=== PATIENT | female | born 1955 | race Caucasian/White ===

== ENCOUNTER 2018-05-25 00:48 | Outpatient (CLI) | payer BC, SELFPAY ==
--- NOTE | 2018-05-25 15:50 | DI.MAMMO_ITS ---
SYMPTOM/DIAGNOSIS: SCREENING, Z12.31 MAMMOGRAMS: Mammograms were interpreted according to the usual protocol including computer analysis with CAD system, tomosynthesis and C view imaging. Comparison is made with exams from [id number]. The breasts are composed of heterogeneously dense fibroglandular tissue, breast density, category C. No suspicious masses or suspicious microcalcifications are seen. There has been no significant change. IMPRESSION: Category 1C, negative mammogram. Yearly screening mammography is recommended. [facility] ASSESSMENT OF FINDINGS: Negative. Category 1. Patient will receive a letter notifying them of these results. Bi-RADS category C. The breasts are heterogeneously dense, which may obscure small masses.
== END 2018-05-25 01:08 ==
PROVIDERS: PCP Nurse Practitioner Family; Visit Provider Nurse Practitioner Family
DX: Z12.31 Encounter for screening mammogram for malignant neoplasm of breast (principal)
CPT/HCPCS: 77063; 77067

== ENCOUNTER 2018-12-12 20:01 | Emergency (ER) | payer BC, SELFPAY ==
[2018-12-12 20:09] VITALS: BP 149/90; PULSE 110; RESP 16; TEMP 36.7; O2SAT 100
--- NOTE | 2018-12-12 20:26 | W.ED.GENAD ---
Discharge Plan Disposition Patient Disposition: [facility] Condition: Serious Discharge Details Chief Complaint: GenMedical Clinical Impression: SDH (subdural hematoma) Primary Care Provider: Sommer Mack ED Provider: Jaime Cameron Home Meds and New Rx's Prescriptions: No Action fenofibric acid (choline) 45 mg capsule,delayed release(DR/EC) 45 mg PO DAILY RF: 0 multivitamin 1 EACH tablet 1 tab PO DAILY RF: 0 sodium chloride [Sven 128] 3.5 GM ointment 1 applic OU HS RF: 0 cholecalciferol (vitamin D3) 1,000 UNIT capsule 1,000 unit PO DAILY RF: 0 omega-3 fatty acids 1,000 MG capsule 1,000 mg PO DAILY Qty: 1 RF: 0 estradiol [Vagifem] 10 MCG tablet 10 mcg VG 2 x a week Qty: 30 RF: 3 amitriptyline 25 MG tablet 25 mg PO HS Qty: 90 RF: 4 metoprolol succinate [Toprol XL] 25 MG tablet extended release 24 hr 1 tab PO HS Qty: 90 RF: 4 Discharge Data Discharge Date/Time-TO BE ENTERED AT DEPARTURE: 12/13/18 01:01 Medical Decision Making 62-year-old female presents from home complaining of intermittent episodes over 5 days time of left-sided weakness. Initially felt with her left thigh, then her left axilla, and tonight over her left face. There is been no other associated focal neurologic deficits. She has a blood pressure 149/90, her neurologic exam is unremarkable. Differential diagnosis would include subdural hematoma given recent fall, demyelinating disease such as MS, electrolyte abnormality or dehydration. Referred for screening laboratory EKG, CT scan of the head. CBC, comprehensive, troponin, magnesium unremarkable. Please see additional Downtime Note for final impression and disposition. Addendum: During downtime procedures, the patient was accepted in transfer to [facility] for subdural hematoma Lab Data Lab results reviewed: Yes I reviewed the patient's lab results. Laboratory Results - last 24 hr 12/12/18 12/12/18 20:38 20:38 WBC 6.24 RBC 4.06 Hgb 12.4 Hct 38.7 MCV 95.3 H MCH 30.5 MCHC 32.0 RDW 13.3 Plt Count 266 MPV 9.0 Immature Gran % 0.2 Neutrophils % 64.8 Lymphocytes % 24.4 Monocytes % 9.3 Eosinophils % 0.8 Basophils % 0.5 Absolute Neutrophils 4.05 Absolute Lymphocytes 1.52 Absolute Monocytes 0.58 Absolute Eosinophils 0.05 Absolute Basophils 0.03 Sodium 140 Potassium 3.6 Chloride 101 Carbon Dioxide 29.7 Anion Gap 9.3 BUN 17 Creatinine 0.89 Estimated GFR/1.73 m2 >= 60.00 Glucose 151 H Calcium 9.2 Magnesium 2.0 Total Bilirubin 0.3 AST 23 ALT 39 Alkaline Phosphatase 117 H Troponin I < 0.02 Total Protein 7.9 Albumin 3.7 ECG Data Attestation: I personally reviewed and interpreted this ECG (s) as follows: Interpretation: Normal sinus rhythm with a rate of 95. The QRS is narrow, there is no ST segment elevation HPI General Mode of arrival: ambulatory. Date/Time Provider Initiated Documentation: 12/12/18 20:04. Limitations to Documentation: no limitations. Information obtained by: patient and family. History of Present Illness 62 year old F presents to the emergency department with the chief complaint of Intermittent left-sided numbness over 5 days, described as mild, Quality is described as dull, and is localized to the head, chest and left. Patient started experiencing this day(s) and it has been intermittent. No relieving factors improve symptom(s), No exacerbating factors reported . Patient notes no other symptoms.; denies confusion, chest pain, headaches, syncope and weakness. Patient did receive the following treatments prior to arrival, none Related Data Home Medications Medication Instructions Recorded Confirmed multivitamin 1 tab PO DAILY 01/05/13 12/12/18 sodium chloride [Sven-128] 1 applic OU HS 03/07/13 12/12/18 cholecalciferol (vitamin D3) 1,000 unit PO DAILY 10/24/13 12/12/18 omega-3 fatty acids 1,000 mg PO DAILY #1 02/22/18 12/12/18 estradiol [Vagifem] 10 mcg VG 2 x a week #30 tab 04/20/18 12/12/18 amitriptyline 25 mg PO HS #90 tab-cap 04/26/18 12/12/18 metoprolol succinate [Toprol Xl] 1 tab PO HS #90 tab-cap 05/09/18 12/12/18 fenofibric acid (choline) 45 mg 45 mg PO DAILY 11/06/18 12/12/18 capsule,delayed release Previous Rx's Medication Instructions Recorded estradiol [Vagifem] 10 mcg VG 2 x a week #30 tab 04/20/18 amitriptyline 25 mg PO HS #90 tab-cap 04/26/18 metoprolol succinate [Toprol Xl] 1 tab PO HS #90 tab-cap 05/09/18 Allergies Allergy/AdvReac Type Severity Reaction Status Date / Time doxycycline Allergy Unknown RASH Unverified 12/12/18 20:09 General Stated Complaint: GenMedical ESTELA: 4 Review of Systems Review of Systems No chest pain. Patient notes of fall 1 month ago without loss of consciousness. She denies headaches. No facial droop, no difficulty with speech, no change to vision. 8 systems reviewed and otherwise [facility] Medical History Essential hypertension (Chronic 10/23/13) Depressive disorder (Chronic) Fuchs' corneal dystrophy (Chronic) Tubular adenoma of colon (Resolved ~2009) Surgical History Cervical Procedure (Inactive ~05/2010) Colonoscopy - IV Sedation (Inactive 06/28/16) Oral fibroma removal (Inactive 12/20/16) Family History Mother Essential hypertension Heart disease Hepatitis C Father Colon cancer Sister No problems noted. Brother Heart disease COPD (chronic obstructive pulmonary disease) Brother Essential hypertension Heart disease Myocardial infarction Brother Heart disease Grandfather Lung cancer Grandfather Skin cancer Grandmother Asthma Grandmother Asthma Other Diabetes Fuchs' corneal dystrophy Social History Smoking/Tobacco Use Status: Never Alcohol Intake: current Alcohol Intake frequency: a few times a month Drug use: Never Household members: other Details: 2 Duration: 15-30 minutes/day Frequency: daily Chana/Yazidism: Jainism Special chana needs: No Additional Social history: unable to assess. Exam Narrative Exam Narrative: GEN: awake, alert, oriented 3. Pleasant, well groomed, interactive. HEAD: Normocephalic, atraumatic ENT: Mucous membranes moist, oropharynx unremarkable, External ear exam unremarkable EYES: PERRL, EOMI NECK: Full ROM, no DAVINA, no menigismus CHEST/RESP: Nontender, clear to auscultation bilateral, no wheeze/rhonchi/rales CARDIOVASCULAR: RRR, no murmur, rub shonda. 2+ Rad pulse bilateral ABDOMEN: Soft, nontender, no mass. +Bowel sounds EXT: Full ROM, no edema, no rash Neuro: Grossly normal neurologic exam, conversant, interactive. Gait narrow based with good heel strike. Finger to nose intact. Visual rob intact to confrontation. Finger to nose intact. Negative Romberg.. Psych: Speech fluent, thoughts congruent, affect normal Course Vital Signs Temperature 36.7 C 12/12/18 20:09 Pulse 110 H 12/12/18 20:09 Respiratory Rate 16 12/12/18 20:09 Blood Pressure 149/90 H 12/12/18 20:09 Pulse Oximetry 100 12/12/18 20:09 Temperature 36.7 C 12/12/18 20:09 Temperature Source Temporal Artery Scan 12/12/18 20:09 Pulse 110 H 12/12/18 20:09 Respiratory Rate 16 12/12/18 20:09 Respiratory Effort 12/12/18 20:13 Blood Pressure 149/90 H 12/12/18 20:09 Blood Pressure Position Sitting 12/12/18 20:09 Pulse Oximetry 100 12/12/18 20:09 Oxygen Delivery Method Room Air 12/12/18 20:09 Oxygen Flow Rate 0 12/12/18 20:09
--- NOTE | 2018-12-12 20:29 | ED.GENADUL_ITS ---
Discharge Plan Disposition Patient Disposition: [facility] Condition: Serious Discharge Details Chief Complaint: GenMedical Clinical Impression: SDH (subdural hematoma) Primary Care Provider: Sommer Mack ED Provider: Jaime Cameron Home Meds and New Rx's Prescriptions: No Action fenofibric acid (choline) 45 mg capsule,delayed release(DR/EC) 45 mg PO DAILY RF: 0 multivitamin 1 EACH tablet 1 tab PO DAILY RF: 0 sodium chloride [Sven 128] 3.5 GM ointment 1 applic OU HS RF: 0 cholecalciferol (vitamin D3) 1,000 UNIT capsule 1,000 unit PO DAILY RF: 0 omega-3 fatty acids 1,000 MG capsule 1,000 mg PO DAILY Qty: 1 RF: 0 estradiol [Vagifem] 10 MCG tablet 10 mcg VG 2 x a week Qty: 30 RF: 3 amitriptyline 25 MG tablet 25 mg PO HS Qty: 90 RF: 4 metoprolol succinate [Toprol XL] 25 MG tablet extended release 24 hr 1 tab PO HS Qty: 90 RF: 4 Discharge Data Discharge Date/Time-TO BE ENTERED AT DEPARTURE: 12/13/18 01:01 Medical Decision Making 62-year-old female presents from home complaining of intermittent episodes over 5 days time of left-sided weakness. Initially felt with her left thigh, then her left axilla, and tonight over her left face. There is been no other associated focal neurologic deficits. She has a blood pressure 149/90, her neurologic exam is unremarkable. Differential diagnosis would include subdural hematoma given recent fall, demyelinating disease such as MS, electrolyte abnormality or dehydration. Referred for screening laboratory EKG, CT scan of the head. CBC, comprehensive, troponin, magnesium unremarkable. Please see additional Downtime Note for final impression and disposition. Addendum: During downtime procedures, the patient was accepted in transfer to [facility] for subdural hematoma Lab Data Lab results reviewed: Yes I reviewed the patient's lab results. Laboratory Results - last 24 hr 12/12/18 12/12/18 20:38 20:38 WBC 6.24 RBC 4.06 Hgb 12.4 Hct 38.7 MCV 95.3 H MCH 30.5 MCHC 32.0 RDW 13.3 Plt Count 266 MPV 9.0 Immature Gran % 0.2 Neutrophils % 64.8 Lymphocytes % 24.4 Monocytes % 9.3 Eosinophils % 0.8 Basophils % 0.5 Absolute Neutrophils 4.05 Absolute Lymphocytes 1.52 Absolute Monocytes 0.58 Absolute Eosinophils 0.05 Absolute Basophils 0.03 Sodium 140 Potassium 3.6 Chloride 101 Carbon Dioxide 29.7 Anion Gap 9.3 BUN 17 Creatinine 0.89 Estimated GFR/1.73 m2 >= 60.00 Glucose 151 H Calcium 9.2 Magnesium 2.0 Total Bilirubin 0.3 AST 23 ALT 39 Alkaline Phosphatase 117 H Troponin I < 0.02 Total Protein 7.9 Albumin 3.7 ECG Data Attestation: I personally reviewed and interpreted this ECG (s) as follows: Interpretation: Normal sinus rhythm with a rate of 95. The QRS is narrow, there is no ST segment elevation HPI General Mode of arrival: ambulatory . Date/Time Provider Initiated Documentation: 12/12/18 20:04 . Limitations to Documentation: no limitations . Information obtained by: patient and family . History of Present Illness 62 year old F presents to the emergency department with the chief complaint of Intermittent left-sided numbness over 5 days, described as mild, Quality is described as dull, and is localized to the head, chest and left. Patient started experiencing this day(s) and it has been intermittent. No relieving factors improve symptom(s), No exacerbating factors reported . Patient notes no other symptoms.; denies confusion, chest pain, headaches, syncope and weakness. Patient did receive the following treatments prior to arrival, none Related Data Home Medications Medication Instructions Recorded Confirmed multivitamin 1 tab PO DAILY 01/05/13 12/12/18 sodium chloride [Sven-128] 1 applic OU HS 03/07/13 12/12/18 cholecalciferol (vitamin D3) 1,000 unit PO DAILY 10/24/13 12/12/18 omega-3 fatty acids 1,000 mg PO DAILY #1 02/22/18 12/12/18 estradiol [Vagifem] 10 mcg VG 2 x a week #30 tab 04/20/18 12/12/18 amitriptyline 25 mg PO HS #90 tab-cap 04/26/18 12/12/18 metoprolol succinate [Toprol Xl] 1 tab PO HS #90 tab-cap 05/09/18 12/12/18 fenofibric acid (choline) 45 mg 45 mg PO DAILY 11/06/18 12/12/18 capsule,delayed release Previous Rx's Medication Instructions Recorded estradiol [Vagifem] 10 mcg VG 2 x a week #30 tab 04/20/18 amitriptyline 25 mg PO HS #90 tab-cap 04/26/18 metoprolol succinate [Toprol Xl] 1 tab PO HS #90 tab-cap 05/09/18 Allergies Allergy/AdvReac Type Severity Reaction Status Date / Time doxycycline Allergy Unknown RASH Unverified 12/12/18 20:09 General Stated Complaint: GenMedical ESTELA: 4 Review of Systems Review of Systems No chest pain. Patient notes of fall 1 month ago without loss of consciousness. She denies headaches. No facial droop, no difficulty with speech, no change to vision. 8 systems reviewed and otherwise in [facility] Medical History Essential hypertension (Chronic 10/23/13) Depressive disorder (Chronic) Fuchs' corneal dystrophy (Chronic) Tubular adenoma of colon (Resolved ~2009) Surgical History Cervical Procedure (Inactive ~05/2010) Colonoscopy - IV Sedation (Inactive 06/28/16) Oral fibroma removal (Inactive 12/20/16) Family History Mother Essential hypertension Heart disease Hepatitis C Father Colon cancer Sister No problems noted. Brother Heart disease COPD (chronic obstructive pulmonary disease) Brother Essential hypertension Heart disease Myocardial infarction Brother Heart disease Grandfather Lung cancer Grandfather Skin cancer Grandmother Asthma Grandmother Asthma Other Diabetes Fuchs' corneal dystrophy Social History Smoking/Tobacco Use Status: Never Alcohol Intake: current Alcohol Intake frequency: a few times a month Drug use: Never Household members: other Details: 2 Duration: 15-30 minutes/day Frequency: daily Chana/Anglican: Confucianism Special chana needs: No Additional Social history: unable to assess. Exam Narrative Exam Narrative: GEN: awake, alert, oriented 3. Pleasant, well groomed, interactive. HEAD: Normocephalic, atraumatic ENT: Mucous membranes moist, oropharynx unremarkable, External ear exam unremarkable EYES: PERRL, EOMI NECK: Full ROM, no DAVINA, no menigismus CHEST/RESP: Nontender, clear to auscultation bilateral, no wheeze/rhonchi/rales CARDIOVASCULAR: RRR, no murmur, rub shonda. 2+ Rad pulse bilateral ABDOMEN: Soft, nontender, no mass. +Bowel sounds EXT: Full ROM, no edema, no rash Neuro: Grossly normal neurologic exam, conversant, interactive. Gait narrow based with good heel strike. Finger to nose intact. Visual rob intact to confrontation. Finger to nose intact. Negative Romberg.. Psych: Speech fluent, thoughts congruent, affect normal Course Vital Signs Temperature 36.7 C 12/12/18 20:09 Pulse 110 H 12/12/18 20:09 Respiratory Rate 16 12/12/18 20:09 Blood Pressure 149/90 H 12/12/18 20:09 Pulse Oximetry 100 12/12/18 20:09 Temperature 36.7 C 12/12/18 20:09 Temperature Source Temporal Artery Scan 12/12/18 20:09 Pulse 110 H 12/12/18 20:09 Respiratory Rate 16 12/12/18 20:09 Respiratory Effort 12/12/18 20:13 Blood Pressure 149/90 H 12/12/18 20:09 Blood Pressure Position Sitting 12/12/18 20:09 Pulse Oximetry 100 12/12/18 20:09 Oxygen Delivery Method Room Air 12/12/18 20:09 Oxygen Flow Rate 0 12/12/18 20:09
[2018-12-12 20:46] LABS: Abs Immature Grans 0.01 k/cumm (0.0-0.09); Absolute Basophil Count 0.03 k/cumm (0.0-0.2); Absolute Eosinophil Count 0.05 k/cumm (0.0-0.7); Absolute Lymphocyte Count 1.52 k/cumm (1.2-3.4); Absolute Monocyte Count 0.58 k/cumm (0.11-0.7); Absolute Neutrophil Count 4.05 k/cumm (1.2-6.7); Basophils % 0.5; Eosinophils % 0.8; HCT 38.7 % (36.0-46.0); HGB 12.4 g/dL (12.0-15.5); Immature Grans % 0.2; Lymphocytes % 24.4; Mean Corpuscular Hemoglobin 30.5 pg (27.0-33.0); Mean Corpuscular Volume 95.3 fL (80-95); Monocytes % 9.3; Neutrophils % 64.8; Platelet Count 266 x1000/uL (130-400); RBC 4.06 m/cumm (4.00-5.20); RBC Distribution Width 13.3 % (11.7-14.6); White Blood Cell Count 6.24 k/cumm (4.4-10.8)
[2018-12-12 21:02] LABS: ALT 39 U/L (12-78); AST 23 U/L (15-37); Albumin 3.7 g/dL (3.4-5.0); Alkaline Phosphatase 117 U/L (46-116); Anion Gap 9.3 mmol/L (3-11); BUN 17 mg/dL (7-18); Bilirubin, Total 0.3 mg/dL (0.2-1.0); CO2 29.7 mmol/L (21.0-32.0); CREATININE 0.89 mg/dL (0.55-1.02); Calcium 9.2 mg/dL (8.5-10.1); Chloride 101 mmol/L (98-107); Glucose 151 mg/dL (70-100); Potassium 3.6 mmol/L (3.5-5.1); Sodium 140 mmol/L (136-145); Total Protein 7.9 g/dL (6.4-8.2); Troponin I < 0.02 ng/mL (0.00-0.06)
--- NOTE | 2018-12-12 21:20 | DI.CT_ITS ---
SYMPTOM/DIAGNOSIS: INTERMITTENT LT SIDED NUMBNESS, FALL 1 [address] A[address] HEAD [address]: A noncontrast exam was performed. 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 in thickness on the right side and 7 mm. in thickness on the left side. Note is however made of an acute subdural hematoma measuring 8 mm. in thickness in the left parietal region. There is a mild mass effect on the bilateral cerebral hemispheres with no midline shift or downward herniation. Atrophic changes involving the brain are demonstrated with evidence of small vessel disease. There is no evidence of an acute territorial infarct. The basil cisterns are visualized. The ventricles are unremarkable. There is no evidence of a skull fracture. The paranasal sinuses and mastoid air cells appear unremarkable. The soft tissues are unremarkable. Note is made of an empty sella. 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 in thickness on the right side and 7 mm. in thickness on the left side is demonstrated. Note is however made of an acute subdural measuring 8 mm. in thickness in the left parietal region. There is a mild mass effect on the cerebral hemispheres. There is no evidence of a midline shift or downward herniation. There is nothing on this examination to suggest a territorial infarct.
--- NOTE | 2018-12-13 00:57 | DI.VRAD_ITS ---
EXAM: CT Head Without Contrast EXAM DATE/TIME: 12/12/2018 8:26 PM CLINICAL HISTORY: 62 years old, female; Signs and symptoms; Dizziness and numbness / parasthesia; Left; Patient HX: Fell a month ago and had a concussion. New onset of left sided numbness starting in leg and moving up into shoulder TECHNIQUE: Imaging protocol: Axial computed tomography images of the head/brain without contrast. Coronal and sagittal reformatted images were created and reviewed. Radiation optimization: All CT scans at this facility use at least one of these dose optimization techniques: automated exposure control; mA and/or kV adjustment per patient size (includes targeted exams where dose is matched to clinical indication); or iterative reconstruction. COMPARISON: No relevant prior studies available. 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 There is, however, an acute subdural hematoma measuring 8 mm in thickness in the left parietal region. There is mild mass effect on the bilateral cerebral hemispheres with no midline shift or downward herniation. Age-related involutional changes and chronic microvascular ischemic disease. No evidence for acute transcortical infarct. Basal cisterns are patent. Ventricles: Normal. No ventriculomegaly. Bones/joints: Unremarkable. No acute fracture. Sinuses: Visualized sinuses are unremarkable. No acute sinusitis. Mastoid air cells: Visualized mastoid air cells are unremarkable. No mastoid effusion. Soft tissues: Unremarkable. Other findings: Empty sella. IMPRESSION: 1. 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 There is, however, an acute subdural hematoma measuring 8 mm in thickness in the left parietal region. There is mild mass effect on the bilateral cerebral hemispheres with no midline shift or downward herniation. 2. No evidence for acute transcortical infarct. THIS REPORT CONTAINS FINDINGS THAT MAY BE CRITICAL TO PATIENT CARE. The findings were verbally communicated via telephone conference with BRADEN MCCRARY at 9:44 PM EDT on 12/12/2018. The findings were acknowledged and understood. Dictated and Authenticated by: Zane Ortega MD. Ordering:RC Sandoval MD
[2018-12-13 05:52] LABS: Prothrombin Time 9.9 sec (9.3-11.0)
== END 2018-12-13 01:01 | disposition short-term general hospital (02) ==
LOC: ER 20:42
PROVIDERS: Emergency Provider Emergency Medicine; PCP Nurse Practitioner Family
DX: I62.00 Nontraumatic subdural hemorrhage, unspecified (principal)
CPT/HCPCS: 36415; 80053; 93005; 99285; 70450; 83735; 84484; 85025; 85610; 85730; 93010

== ENCOUNTER 2019-06-12 00:42 | Outpatient (CLI) | payer BC, SELFPAY ==
--- NOTE | 2019-06-12 14:20 | DI.CT_ITS ---
EXAM: CT HEAD WO CLINICAL HISTORY: H/O SUBDURAL HEMATOMA 12/29,LAST SCAN 04/02 [facility] [place], [id number].XXXA FALL. TECHNIQUE: Imaging Protocol: Axial computed tomography images with coronal and sagittal reformatted images were created and reviewed COMPARISON: CT HEAD WO from 12/12/2018 FINDINGS: Ventricles and Extra axial spaces: Normal in size and morphology for the patient's age. No acute terr itorial infarct is identified. No intraparenchymal hemorrhage is present. The ventricles are intact . The basilar cisterns are patent. Hemorrhage: There are small bilateral subdural fluid collections. They are hypodense. These may rep resent old subdural hematomas or hygromas. No evidence of acute subdural hematoma. Cerebral parenchyma: Normal. Midline shift: None. Brainstem/Cerebellum: Normal. Calvarium: Normal. Visualized Paranasal sinuses/Mastoids: Clear. IMPRESSION: 1. No acute intracranial hemorrhage. 2. Bilateral small subdural hypodense fluid collections. These may represent old subdural hematomas or hygromas. DATA REPOSITORY: All CT scans at this facility are submitted to the National Radiology Data Registry (NRDR) Dose Index Registry (DIR) with the [employer] (ACR). RADIATION OPTIMIZATION: All CT scans at this facility use at least one of these dose optimization te chniques: automated exposure control; mA and/or kV adjustment per patient size (includes targeted exa ms where dose is matched to clinical indication); or iterative reconstruction.
== END 2019-06-12 01:02 ==
PROVIDERS: PCP Nurse Practitioner Family; Visit Provider Nurse Practitioner Family
DX: I62.03 Nontraumatic chronic subdural hemorrhage (principal); Z86.79 Personal history of other diseases of the circulatory system; Z91.81 History of falling
CPT/HCPCS: 70450

== ENCOUNTER 2019-08-07 00:52 | Outpatient (CLI) | payer BC, SELFPAY ==
--- NOTE | 2019-08-07 16:39 | DI.MAMMO_ITS ---
EXAM: MAMMO SCREENING CLINICAL HISTORY: screening Z12.39 TECHNIQUE: Mammograms were interpreted according to the usual protocol including computer analysis w [employer] CAD system, tomosynthesis and C-view imaging. COMPARISON: May 2018 FINDINGS: The breasts are heterogeneously dense. No dominant mass or clumped microcalcification is identified in either breast. The current examination is compared with previous examinations including May 2018 and there is question of interval increase in prominence of a focal area of asymmetric density/n odularity projected in the lateral retroareolar portion of the right breast on CC view only. Additio nal mammographic views of this area are requested to include CC spot compression view of the right b reast. No other significant change seen. IMPRESSION: Additional mammographic views of the right breast requested as described above. Breast ultrasound may be indicated as well depending on results additional mammographic views. Category 0, breast density Category C. BI-RADS Cat 0 - Assessment Incomplete: Need additional imaging evaluation Breast Density - Category C - Heterogeneously dense
== END 2019-08-07 01:12 ==
PROVIDERS: PCP Nurse Practitioner Family; Visit Provider Nurse Practitioner Family
DX: Z12.31 Encounter for screening mammogram for malignant neoplasm of breast (principal); R92.8 Other abnormal and inconclusive findings on diagnostic imaging of breast
CPT/HCPCS: 77063; 77067

== ENCOUNTER 2019-08-14 01:01 | Outpatient (CLI) | payer BC, SELFPAY ==
--- NOTE | 2019-08-14 10:34 | DI.US_ITS ---
EXAM: MG MAMMO SCREEN CALL BACK UNI and right breast ultrasound CLINICAL HISTORY: ? INTERVAL INCREASE PROMINENCE OF FOCAL AREA OF ASYMMETRIC DENSITY/NODULARI TECHNIQUE: Craniocaudal and mediolateral oblique Full Field Digital Mammography views with Computer Aided Diagnosis followed by Breast Tomosynthesis and bilateral breast ultrasound. COMPARISON: US BREAST RT LIMITED from 08/14/2019 FINDINGS: Mammography/Tomosynthesis: Breast Density: Breast Density - Category C - Heterogeneously dense Masses/Architectural Distortion: None seen. Microcalcifications: No suspicious pleomorphic-type are seen. Skin Thickening/Nipple Retraction: None. Breast Ultrasound: Right breast ultrasound Echotexture: Normal appearance of the glandular tissue. Shadowing: No suspicious foci. Cyst: None. Solid lesions: None seen. Ductal dilation: None. IMPRESSION: 1. No evidence for malignancy at this time 2. Unless there is more urgent need, follow-up screening mammography is recommended, as per [place] [employer] guidelines. ACR BI-RAD Category- 1 Negative Breast Density - Category C - Heterogeneously dense The findings were discussed with the patient on the date of the examination. The mammogram demonstrates the patient's breast tissue is dense. Dense breast tissue is very common a nd is not abnormal but dense breast tissue can make it harder to find cancer on a mammogram. Also, de nse breast tissue may increase their breast cancer risk. This information about the [facility] was provided to the patient to raise their awareness. Use this report when you speak wi th the patient about their risks for breast cancer, which includes their family history. At that time , you may recommend for more screening tests (Ultrasound or MRI) as they might be useful based on the ir risk. A negative radiographic report should not delay biopsy if a dominant or clinically suspicious mass is present. Up to ten percent of cancers are not identified on mammography. A negative report may reinforce clinical impression. Adenosis and dense breasts may obscure an underlying neoplasm. False positive reports average 6 to 10%. Patient will receive a letter notifying them of these results.
== END 2019-08-14 01:21 ==
PROVIDERS: PCP Nurse Practitioner Family; Visit Provider Nurse Practitioner Family
DX: Z12.31 Encounter for screening mammogram for malignant neoplasm of breast (principal); R92.8 Other abnormal and inconclusive findings on diagnostic imaging of breast; N64.59 Other signs and symptoms in breast
CPT/HCPCS: 76642; 77063; 77067

== ENCOUNTER 2020-02-21 01:27 | Outpatient (CLI) | payer BC, SELFPAY ==
--- NOTE | 2020-02-21 14:05 | DI.DEXA_ITS ---
EXAM: XR DEXA BONE DENSITY W/WO LINDSAY CLINICAL HISTORY: osteoporosis screening Z78.0 ASYMPTOMATIC MENOPAUSAL STATE TECHNIQUE: COMPARISON: No exams were available for comparison FINDINGS: Lateral Spine Image: Unremarkable. No compression deformities identified. Left hip: Total T-Score: 0.8 Total Z-Score: 2.0 T- and Z-scores: Within normal limits. Lumbar Spine: Total T-Score: 2.1 Total Z-Score: 3.8 T- and Z-scores: Within normal limits. IMPRESSION: No evidence of osteoporosis.
== END 2020-02-21 01:47 ==
PROVIDERS: PCP Nurse Practitioner Family; Visit Provider Nurse Practitioner Family
DX: Z13.820 Encounter for screening for osteoporosis (principal); Z78.0 Asymptomatic menopausal state
CPT/HCPCS: 77080

== ENCOUNTER 2020-04-21 01:54 | Outpatient (CLI) | payer BC, SELFPAY ==
--- NOTE | 2020-04-21 06:45 | DI.US_ITS ---
EXAM: US PELVIS TRANSVAGINAL CLINICAL HISTORY: FOCUS ON OVARY,RLQ PAIN,RT SIDED ABD PAIN. TECHNIQUE: Transabdominal and transvaginal pelvic ultrasound was performed using standard protocol. COMPARISON: US PELVIS TRANSVAG from 04/06/2010 FINDINGS: KIDNEYS: Kidneys are symmetric in size. No evidence of renal calculi. No evidence of hydronephrosis. No renal mass or cyst identified. UTERUS: Position: Anteverted. Size: 7.4 long by 4.0 AP by 4.9 transverse cm Endometrium: 0.7 cm. Mildly thickened in this postmenopausal patient. Please correlate with clinical history and for evidence of postmenopausal bleeding. Follow-up as clinically appropriate. Myometrium: 2 hypoechoic masses are seen within the myometrium. The larger measures 1.2 cm. The sma ller measures 1.1 cm. These likely reflect fibroids. Cervix: Unremarkable. OVARIES: Right: 1.9 x 0.7 x 0.8 cm Cyst or mass: None. Left: 2.2 x 0.8 x 0.9 cm Cyst or mass: None. DOPPLER: Color: Symmetric and uniform flow to both ovaries. No hyperemia. Duplex: Normal ovarian arterial waveforms visualized. CUL-DE-SAC: Free fluid: None. Other: None. IMPRESSION: 1. Normal sonographic appearance of the kidneys. 2. Two small uterine fibroids. 3. 7 mm endometrial stripe in this postmenopausal patient. Follow-up based on clinical history. 4. Unremarkable bilateral ovaries. DATA REPOSITORY:
== END 2020-04-21 02:14 ==
PROVIDERS: PCP Nurse Practitioner Family; Visit Provider Nurse Practitioner Family
DX: R10.31 Right lower quadrant pain (principal); D25.9 Leiomyoma of uterus, unspecified
CPT/HCPCS: 76830; 76856

== ENCOUNTER 2020-04-29 15:12 | Outpatient (REF) | payer BC, SELFPAY ==
--- NOTE | 2020-04-29 14:54 | ENDOMET_PTH ---
PATIENT: Iona Montez LOC: [facility] U#:[id number] AGE/SX: 64/F ROOM: RE04/29/[address]: Fatuma Anne DO : 1955 BED: DIS: 04/29/2020 SPEC #: [id number] RECD: 04/29/20 18:15 STATUS: SOUKrystle REQ #: [id number] PABLO: 04/29/20 14:[address]: Fatuma Anne DEPT: Surgical Specimen RECD BY: Mily Madden ENTERED: 04/29/20 18:16 SP TYPE: Endomet OTHR DR: RAE Cole Tissues: 1 - ENDOMETRIUM BX/HAILEE Procedures: GROSS AND MICRO LEVEL 4 Comments: [id number]
== END 2020-04-29 15:32 ==
LOC: LBN 15:12
PROVIDERS: PCP Nurse Practitioner Family; Visit Provider Obstetrics & Gynecology
DX: N84.0 Polyp of corpus uteri (principal); N85.8 Other specified noninflammatory disorders of uterus
CPT/HCPCS: 88305

== ENCOUNTER 2020-05-13 10:15 | Emergency (ER) | payer BC, SELFPAY ==
--- NOTE | 2020-05-13 10:15 | DI.CT_ITS ---
EXAM: CT ABDOMEN PELVIS W CLINICAL HISTORY: Abdominal pain TECHNIQUE: Imaging Protocol: Axial computed tomography images with coronal and sagittal reformatted images were created and reviewed CONTRAST MATERIAL: Intravenous: Omnipaque 350 Contrast volume:100 mL Oral: Yes COMPARISON: No exams were available for comparison FINDINGS: ABDOMEN: Lung Bases: Normal where visualized. Liver: Normal density. No measurable mass. Portal, Superior Mesenteric, and Splenic Veins: Unremarkable. Gallbladder and Biliary Tract: No radiodense calculus or dilation. Pancreas: Normal density, no abnormal calcifications or inflammatory process. Spleen: Normal. Adrenals: No masses seen. 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 No radiodense stones or obstructive uropathy. Tiny hypo densities are seen in the kidneys. They are too small for further characterization but likely reflec t small cysts. Abdominal Aorta: Abdominal portion non-dilated. Bowel: No obstruction or bowel wall thickening. No evidence of acute appendicitis. Peritoneal Cavity: No ascites, collection or mesenteric inflammatory response. Lymph Nodes: Within normal limits. Bones: Degenerative changes. Soft Tissues: Unremarkable. PELVIS: Bladder: Symmetric distention, no gross wall thickening. Reproductive Organs: Unremarkable as visualized. Lymph Nodes: Within normal limits. Bones: Degenerative changes. IMPRESSION: No acute abdominal or pelvic process. Findings were discussed with the emergency department on the date of the examination. RADIATION DOSE DELIVERED: 976.4mGy.cm Total DLP DATA REPOSITORY: All CT scans at this facility are submitted to the National Radiology Data Registry (NRDR) Dose Index Registry (DIR) with the [employer] (A[employer]). RADIATION OPTIMIZATION: All CT scans at this facility use at least one of these dose optimization te chniques: automated exposure control; mA and/or kV adjustment per patient size (includes targeted exa ms where dose is matched to clinical indication); or iterative reconstruction.
[2020-05-13 10:24] VITALS: BP 157/88; PULSE 117; RESP 17; TEMP 37.2; O2SAT 100
--- NOTE | 2020-05-13 10:31 | ED.GENADUL_ITS ---
Discharge Plan Disposition Patient Disposition: HOME Condition: Stable Discharge Details Chief Complaint: Abd Prob Clinical Impression: Abdominal pain Primary Care Provider: Sommer Mack ED Provider: Rachel Palomo Home Meds and New Rx's Prescriptions: Continued calcium carbonate [Calcium 500] 500 mg calcium (1,250 mg) tablet 1,500 mg PO DAILY RF: 0 multivitamin 1 EACH tablet 1 tab PO DAILY RF: 0 sodium chloride [Sven 128] 3.5 GM ointment 1 applic OU HS RF: 0 amitriptyline 25 mg tablet 25 mg PO HS Qty: 90 RF: 4 metoprolol succinate [Toprol XL] 25 mg tablet extended release 24 hr 25 mg PO HS Qty: 90 RF: 4 Discharge Instructions Instructions: Abdominal Pain (ED) Additional Instructions: Follow up with primary care provider in 3-5 days. Return to ED sooner if any worsening or concerns. Increase oral fluids. Please take Tylenol or Ibuprofen with food every 4-6 hours as needed for pain and swelling. Follow-up with Dr. Giles with general surgery as previously discussed for possible outpatient colonoscopy. Today your labs were within normal limits. Your stool was guaiac negative for blood. Your CT abdomen pelvis showed no evidence for appendicitis, no thickening of the bowel wall, or any acute abnormalities noted. Referrals: Sommer Mack NP [Primary Care Provider] - Yaquelin Santiago MD [ [facility] STAFF PHYSICIAN] - Discharge Data Discharge Date/Time-TO BE ENTERED AT DEPARTURE: 05/13/20 12:42 Medical Decision Making 64-year-old female presents to the ER with chief complaint of right lower quadr ant abdominal pain which is been ongoing for approximately 4 to 5 months. Patient states that she was seen by general surgery Dr. Santiago on Tuesday who ordered a CT abdomen pelvis with oral and IV contrast to be scheduled within the next 10 days. Patient states that her abdominal pain increased today so she decided to come into the ER. Associated symptoms include alternating diarrhea and constipation. Denies dysuria, vomiting fever chills. Does have a history of depression, Subdural hematoma, hypertension, hyperlipidemia. 1210: Spoke with Dr. Yaquelin Santiago regarding patient discussed negative guaiac stools and CT abdomen pelvis which is pending at this time, verbalized understanding. EXAM: CT ABDOMEN PELVIS W CLINICAL HISTORY: Abdominal pain TECHNIQUE: Imaging Protocol: Axial computed tomography images with coronal and sagittal reformatted images were created and reviewed CONTRAST MATERIAL: Intravenous: Omnipaque 350 Contrast volume:100 mL Oral: Yes COMPARISON: No exams were available for comparison FINDINGS: ABDOMEN: Lung Bases: Normal where visualized. Liver: Normal density. No measurable mass. Portal, Superior Mesenteric, and Splenic Veins: Unremarkable. Gallbladder and Biliary Tract: No radiodense calculus or dilation. Pancreas: Normal density, no abnormal calcifications or inflammatory process. Spleen: Normal. Adrenals: No masses seen. 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 No radiodense stones or obstructive uropathy. Tiny hypodensities are seen in the kidneys. They are too small for further characterization but likely reflect small cysts. Abdominal Aorta: Abdominal portion non-dilated. Bowel: No obstruction or bowel wall thickening. No evidence of acute appendicitis. Peritoneal Cavity: No ascites, collection or mesenteric inflammatory response. Lymph Nodes: Within normal limits. Bones: Degenerative changes. Soft Tissues: Unremarkable. PELVIS: Bladder: Symmetric distention, no gross wall thickening. Reproductive Organs: Unremarkable as visualized. Lymph Nodes: Within normal limits. Bones: Degenerative changes. IMPRESSION: No acute abdominal or pelvic process. Labs are largely within normal limits. CBC shows no leukocytosis, sodium is 136, potassium is 4.0 glucose is 121, urine shows 40 ketones trace blood 3-5 RBCs Plan is to discharge patient with follow-up with Dr. Santiago for possible outpatient colonoscopy. Discussed plan and CT results and lab results with patient, verbalized understanding. At this time patient is guaiac negative and stable and safe for discharge. Patient remained hemodynamically stable, this text was generated using Card Isleation system, please disregard any oddities of phrase or misspellings. Differential diagnosis includes but not limited to gastroenteritis, colitis, colon cancer, appendicitis, diverticulitis HPI General Mode of arrival: ambulatory . Date/Time Provider Initiated Documentation: 05/13/20 10:18 . Limitations to Documentation: no limitations . Information obtained by: patient . HPI Narrative: 64-year-old female presents to the ER with chief complaint of right lower quadrant abdominal pain which is been ongoing for approximately 4 to 5 months. Patient states that she was seen by general surgery Dr. Santiago on Tuesday who ordered a CT abdomen pelvis with oral and IV contrast to be scheduled within the next 10 days. Patient states that her abdominal pain increased today so she decided to come into the ER. Associated symptoms include alternating diarrhea and constipation. Denies dysuria, vomiting fever chills. Does have a history of depression, Subdural hematoma, hypertension, hyperlipidemia. Related Data Home Medications Medication Instructions Recorded Confirmed multivitamin 1 tab PO DAILY 01/05/13 05/13/20 sodium chloride [Sven 128] 1 applic OU HS 03/07/13 05/13/20 amitriptyline 25 mg tablet 25 mg PO HS #90 tab-cap 04/30/19 05/13/20 metoprolol succinate 25 mg 25 mg PO HS #90 tab-cap 08/24/19 05/13/20 tablet,extended release 24 hr calcium carbonate 500 mg calcium 1,500 mg PO DAILY tab 05/09/20 05/13/20 (1,250 mg) tablet Previous Rx's Medication Instructions Recorded amitriptyline 25 mg tablet 25 mg PO HS #90 tab-cap 04/30/19 metoprolol succinate 25 mg 25 mg PO HS #90 tab-cap 08/24/19 tablet,extended release 24 hr Allergies Allergy/AdvReac Type Severity Reaction Status Date / Time doxycycline Allergy Unknown RASH Unverified 05/13/20 10:28 General Stated Complaint: Abd Prob ESTELA: 3 Review of Systems Narrative: Constitutional: Negative for weight loss, alert and oriented, well groomed, normal body habitus, appears comfortable. HEENT: Denies trauma, headaches, blurry vision, nasal discharge, sore throat, trouble swallowing. Chest: Denies chest pain, palpitations, irregular rhythm, hypertension. Respiratory: Denies Shortness of breath, cough, hemoptysis. GI: Reports chronic right lower quadrant abdominal pain alternating constipation and diarrhea. : Denies dysuria, hematuria, flank pain, Neuro: Denies dizziness, blurry vision, weakness, syncope, headache or facial numbness. Hematologic: Denies easy bruising, intolerance to heat or cold, hair loss. [facility] Medical History Abdominal pain (Acute) Altered bowel habits (Acute) Depressive disorder (Chronic) Essential hypertension (Chronic) Fuchs' corneal dystrophy (Chronic) Hyperlipidemia (Chronic) Prediabetes (Chronic) Subdural hematoma (Resolved ~12/2018) Managed by [facility] [place] Neuro. Near resolution per head CT 06/12/19 Thickened endometrium (Acute) Tubular adenoma of colon (Resolved ~2009) Surgical History Hx of oral surgery (Acute 12/20/16) Oral fibroma removal S/P colonoscopy (Acute 06/28/16) Family History Mother , At 90 from liver failure Hypertension Liver disease Heart disease Father , At 80 from colon cancer Colon cancer Sister No problems noted. Brother COPD (chronic obstructive pulmonary disease) Heart disease Brother Heart disease Myocardial infarction Hypertension Type 2 diabetes mellitus Brother Heart disease Type 2 diabetes mellitus Maternal Grandfather Lung cancer Maternal Grandmother Asthma Paternal Grandfather , At 78 from suicide Skin cancer Asthma Paternal Grandmother Asthma Social History Smoking/Tobacco Use Status: Never Alcohol Intake: current Alcohol Intake frequency: a few times a month Drug use: Never Counseling provided: none Household members: other Details: 2 Duration: 15-30 minutes/day Frequency: daily Chana/Yazidism: Catholic Special chana needs: No Do you feel safe at home: Yes Do you feel safe in your relationship?: Yes Female Reproductive History Menstrual Menopause type: natural History History 0 Para Hx # Term Pregnancies Multiple births Hx # Pregnancies Ectopic pregnancies AB induced Hx Number of Living Children AB spontaneous Exam Narrative Exam Narrative: Constitutional: Alert and oriented x3. Appears stated age. Normal body habitus. Head: Normocephalic, no trauma. Eyes: Pupils PERRLA, Red reflex noted, EOM's intact. Eyelids symmetrical without lesions, discharge, or swelling. ENT: Bilateral TM's WNL, External ear normal to inspection, no mastoid TTP, swelling, or erythema, Nasal turbinates WNL, no nasal discharge. Normal dentition, Posterior pharynx WNL, no exudate. Chest: RRR, Normal S1, S2, distal pulses intact. Resp: Lungs clear to auscultation bilaterally, no wheezes, rales, or rhonchi. Abdominal: Abdomen soft, nondistended right lower quadrant tender to palpation. Negative iliopsoas sign, negative obturator sign. Normoactive bowel sounds all 4 quadrants. Musculoskeletal: Normal gait, 5/5 strength to all four extremities. Skin: No suspicious rashes or lesions. Capillary refill less than 2 sec. Neurologic: Cranial nerves II-XII intact. Alert and oriented x 3. DTR's intact. Hematologic/Lymphatic: No ecchymosis, no lymphadenopathy. Course Vital Signs Vital signs: Vital Signs Temperature 37.2 C 05/13/20 10:24 Pulse 117 H 05/13/20 10:24 Respiratory Rate 17 05/13/20 10:24 Blood Pressure 157/88 H 05/13/20 10:24 Pulse Oximetry 100 05/13/20 10:24 Temperature 37.2 C 05/13/20 10:24 Temperature Source Skin 05/13/20 10:24 Pulse 117 H 05/13/20 10:24 Respiratory Rate 17 05/13/20 10:24 Blood Pressure 157/88 H 05/13/20 10:24 Blood Pressure Position Sitting 05/13/20 10:24 Pulse Oximetry 100 05/13/20 10:24 Oxygen Delivery Method Room Air 05/13/20 10:24 Oxygen Flow Rate 0 05/13/20 10:24 Pain Level 2 05/13/20 10:24 Procedures Stool Hemoccult Procedural Steps Taken: stool placed in appropriate test area, developer placed on stool and control areas and controls appropriately positive and negative Hemoccult result: negative
[2020-05-13] MEDS: Omnipaque 350 MG/ML 50 ML BTL PO (10:35)
[2020-05-13] MEDS: Breeza Beverage 473 ML BTL PO ×2 (10:36→10:37)
[2020-05-13 10:56] LABS: Bilirubin Negative (Negative); Blood Trace-intact (Negative); Clarity Clear (Clear); Glucose Negative (Negative); Ketones 40 mg/dL (Negative); Leukocyte Esterase Negative (Negative); Nitrite Negative (Negative); Specific Gravity >= 1.030 (1.005-1.025); Urobilinogen 0.2 EU/dL (Up TO 0.2)
[2020-05-13] MEDS: Omnipaque 350 MG/ML 100 ML BTL IJ (11:06)
[2020-05-13] MEDS: Normal Saline - Diluent 50 ML VIAL IV (11:09)
[2020-05-13] MEDS: Normal Saline 1,000 ML 250 ML IV (11:09)
[2020-05-13 11:11] LABS: Epithelial Cells Moderate HPF (Negative)
[2020-05-13 11:12] LABS: Bacteria Few HPF (Negative); C & S Indicated? No/Sq. Contamination; Casts Negative LPF (Negative); Crystals Negative HPF (Negative); Mucus Negative (Negative)
[2020-05-13 11:15] LABS: Abs Immature Grans 0.01 10^3/uL (0.0-0.06); Absolute Basophil Count 0.02 10^3/uL (0.0-0.2); Absolute Eosinophil Count 0.01 10^3/uL (0.0-0.7); Absolute Monocyte Count 0.32 10^3/uL (0.1-0.8); Absolute Neutrophil Count 4.02 10^3/uL (1.2-6.7); Basophils % 0.4; Eosinophils % 0.2; HCT 42.3 % (36.0-46.0); HGB 13.7 g/dL (11.2-15.7); Immature Grans % 0.2; Lymphocytes % 13.8; MCH 30.3 pg (27.0-33.0); MCHC 32.4 % (32.0-36.0); MCV 93.6 fL (80-95); MPV 9.3 fL (8.0-11.0); Monocytes % 6.3; Neutrophils % 79.1; Nucleated RBC 0 %; Platelet Count 229 10^3/uL (130-400); RBC 4.52 10^6/uL (3.93-5.22); RDW 12.3 % (11.7-14.6); RDW-SD 42.5 fL; WBC 5.08 10^3/uL (4.4-10.8)
[2020-05-13 11:36] LABS: ALT 34 U/L (14-59); AST 19 U/L (15-37); Alkaline Phosphatase 101 U/L (46-116); Anion Gap 8.9 mmol/L (3-11); BUN 10 mg/dL (7-18); Bilirubin, Total 0.4 mg/dL (0.2-1.0); CO2 28.1 mmol/L (21.0-32.0); CREATININE 0.89 mg/dL (0.55-1.02); Calcium 9.5 mg/dL (8.5-10.1); Chloride 99 mmol/L (98-107); Glucose 121 mg/dL (74-106); Lipase 218 U/L (73-393); Magnesium 1.9 mg/dL (1.8-2.4); Sodium 136 mmol/L (136-145); Total Protein 8.1 g/dL (6.4-8.2)
[2020-05-13 12:44] VITALS: BP 157/88; PULSE 90; RESP 17; TEMP 37.2; O2SAT 100
== END 2020-05-13 12:42 | disposition home or self-care (01) ==
PROVIDERS: Emergency Provider Registered Nurse Emergency; PCP Nurse Practitioner Family
DX: R10.31 Right lower quadrant pain (principal); R19.7 Diarrhea, unspecified; K59.00 Constipation, unspecified; I10 Essential (primary) hypertension
CPT/HCPCS: 36415; 80053; 83690; 96360; 96361; 99285; 74177; 81003; 81015; 83735; 85025; 99284; J3490; Q9967

== ENCOUNTER 2020-06-04 07:18 | Day surgery (SDC) | payer BC, SELFPAY ==
--- NOTE | 2020-06-04 06:44 | COLE_ITS ---
Date of service: 06/04/20 Time of Service: 08: Colonoscopy Report Date of procedure: 06/04/20 Pre-op diagnosis general: Right lower quadrant pain Post-op diagnosis procedure note: other (Grade 1 internal hemorrhoid, otherwise normal) Procedure: Colonoscopy Surgeon: Yaquelin Santiago Anesthesia proc note operative: other (General/ ASA 2/Alie Edwards, YUNIER) Estimated blood loss (mL): 0 Pathology: none sent Complications: None Disposition: same day Indications: Mrs. Montez is a pleasant 64 year old female who tells me that around December of this year she started to experience some right lower quadrant abdominal pain mostly with movement. At that time she was doing a lot of sit ups and planks because she was trying to lose weight. She also started to experience some constipation at that time. In February or March the patient started to go between constipation and diarrhea. She started to develop right lower quadrant pain which preceded a bout of diarrhea. The pain then would resolve. She also had one episode of pencil thin stools but the patient tells me that she was straining at the time. She was started on Metamucil by her primary care physician and this has helped. She has more normal bowel movements at this time but still once in a while has some loose stools or diarrhea. No kiara blood. Had one bowel movement today where there was some red flecks in them. Patient thought there was a blood vessel within the stool. Patient is quite anxious about the possibility of having colon cancer. She had a colonoscopy in 2016 which was normal. Patients father had colon cancer in his 80's. Patient was also seen by Dr. Anne because an US showed her endometrial lining to be thicker then expected. Biopsies were negative. At the time that Dr. Anne saw her the patient was constipated. Dr. Anne noted a fullness on palpation in the RLQ. Patient hasn't had an abdominal US or CT scan. CT scan was negative. Colonoscopy was recommended as next step. Risks, benefits and complications have been reviewed. Complications include but are not limited to bleeding, pain, perforation, missed small lesion/polyp, sore throat, aspiration and adverse reaction to the medications. Questions were ente rtained and answered to their satisfaction and they wished to proceed. No guarantees were given or implied. Prep: Miralax/Dulcolax Procedure Start Time: :27 Procedure End Time: 08:48 Retraction Time: 13 minutes Findings: Grade 1 internal hemorrhoids Procedure Description: After informed consent was obtained the patient was taken to the procedure room and placed in a left decubitous position. Monitors were applied and a time out was done. The patients name, date of , procedure, allergies to medications and metal in their body was reviewed. The patient was then sedated. Once sedated and comfortable a rectal exam was done. External exam was normal. Internal exam revealed a normal sphincter tone and no palpable masses. The scope was then introduced and retro-flexed. Grade 1 internal hemorrhoids were identified. The scope was then advanced to the cecum without difficulty. The ileocecal valve and appendiceal orifice were identified. The prep was good. The scope was then slowly retracted over 13 minutes back into the rectum. There were no polyps or diverticula noted. The scope was removed and the patient was woken up and taken back to Same day surgery in stable condition. The patient tolerated the procedure well and there were no immediate complications. Follow up: The patient should follow up in 10 years unless they develop changes in bowel habits or other new gastrointestinal complaints.
--- NOTE | 2020-06-04 06:46 | W.PM.DSUDISC ---
Discharge Plan Disposition Patient Disposition: HOME Condition: Good Discharge Details Reason For Visit: RLQ pain Attending Provider: Yaquelin Santiago Primary Care Provider: Sommer Mack Home Meds and New Rx's Prescriptions: Continued calcium carbonate [Calcium 500] 500 mg calcium (1,250 mg) tablet 1,500 mg PO DAILY RF: 0 multivitamin 1 EACH tablet 1 tab PO DAILY RF: 0 sodium chloride [Sven 128] 3.5 GM ointment 1 applic OU HS RF: 0 amitriptyline 25 mg tablet 25 mg PO HS Qty: 90 RF: 4 metoprolol succinate [Toprol XL] 25 mg tablet extended release 24 hr 25 mg PO HS Qty: 90 RF: 4 ascorbic acid (vitamin C) 500 mg Tablet 1,000 mg PO DAILY RF: 0 estradiol [Vagifem] 10 mcg Tablet 10 mcg VAGINAL DAILY RF: 0 Discontinued bisacodyl [Dulcolax (bisacodyl)] 5 mg tablet,delayed release (DR/EC) 5 mg PO ONCE Qty: 4 RF: 0 polyethylene glycol 3350 17 gram/dose powder 17 g PO ONCE Qty: 238 RF: 0 Discharge Instructions Instructions: Hemorrhoids (DC) Additional Instructions: Findings: a couple of small internal hemorrhoids otherwise normal large bowel Follow up: in 10 years for the next colonoscopy Please call if you develop: fevers >101.5 Nausea or Vomiting Abdominal pain that is not transient DAY SURGERY UNIT POST ENDOSCOPY INSTRUCTIONS 1. Because there will be medication in your system for the next 24 hours, you may feel a little sleepy. Your coordination will be affected. Therefore: a. Do not drive or operate dangerous equipment for 24 hours. b. Do not drink alcohol beverages for 24 hours (not even beer). c. Plan to go home and rest for the day. 2. Generally there are no restrictions on your activity after a day or so has gone by, but you may feel a bit fatigued for a few days. 3 After you arrive home you may have a light meal and return to a normal diet as you can tolerate it without feeling sick to your stomach. 4. After surgery, you may feel pain or discomfort. This should be only transient, but if it persists please contact your doctor. 5. If there are any questions regarding the findings of your procedure, please feel free to contact your doctor. 6. If you are unable to contact your doctor with a problem, contact the hospital at [phone]. 6. Continue all your regular medications unless directed otherwise. I understand the above instructions and have no questions. Signature of Patient or Responsible Adult Escort Date/Time Name of Responsible Adult Escort Signature of Nurse Date/Time Activity:: Activity as Tolerated Diet:: high fiber diet Discharge Orders Discharge Orders: Discharge Order (Routine); Ordered 06/04/20 Ordered By: Yaquelin Santiago
[2020-06-04 07:39] VITALS: BP 124/78; PULSE 112; RESP 16; TEMP 36.6; O2SAT 97
[2020-06-04] MEDS: Lactated Ringers 1,000 ML 80 ML IV (08:06)
[2020-06-04 09:21] VITALS: BP 118/75; PULSE 91; RESP 16; TEMP 36.2; O2SAT 99
== END 2020-06-04 09:50 | disposition home or self-care (01) ==
LOC: SUR 07:19
PROVIDERS: PCP Nurse Practitioner Family; Visit Provider Surgery
PROC: 0DJD8ZZ Inspection of Lower Intestinal Tract, Via Natural or Artificial Opening Endoscopic (ICD-10-PCS; CPT 45378; principal; 2020-06-04 08:15)
DX: R10.31 Right lower quadrant pain (principal); K64.0 First degree hemorrhoids
CPT/HCPCS: 45378; J2001

== ENCOUNTER 2020-08-13 01:19 | Outpatient (CLI) | payer BC, SELFPAY ==
--- NOTE | 2020-08-13 16:11 | DI.MAMMO_ITS ---
EXAM: MG MAMMO SCREENING CLINICAL HISTORY: screening,Z12.39. TECHNIQUE: Bilateral full field digital CC and MLO mammographic images were obtained with 3D tomosyn thesis and utilizing computer aided detection (CAD). COMPARISON: Prior mammograms dating back to 2010, the most recent being July 2019. Prior breast ultrasound August 2019 was reviewed. FINDINGS: There are no new dominant masses nor malignant appearing microcalcification groups. There is no new architectural distortion nor skin thickening-retraction. IMPRESSION: No radiographic evidence of malignancy. BI-RADS Category 1 - Negative Breast Density - Category C - Heterogeneously dense Breast density Category C or D implies that the patient has dense breast tissue. Dense breast tissue can make it harder to find cancer on a mammogram. Dense breast tissue is also associated with an incr eased risk of breast cancer. This information about the result of the mammogram report was provided to the patient to raise their awareness. Use this report when you speak with the patient about their risks for breast cancer, which includes their family history. At that time, you may recommend additional screening tests (Ultrasoun d or MRI) as these tests may add significant information. A negative radiographic report should not delay biopsy if a dominant or clinically suspicious mass is present. Up to ten percent of cancers are not identified on mammography. A negative report may reinforce clinical impression. Adenosis and dense breasts may obscure an underlying neoplasm. False positive reports average 6 to 10%. Patient will receive a letter notifying them of these results.
== END 2020-08-13 01:39 ==
PROVIDERS: PCP Nurse Practitioner Family; Visit Provider Nurse Practitioner Family
DX: Z12.31 Encounter for screening mammogram for malignant neoplasm of breast (principal)
CPT/HCPCS: 77063; 77067

== ENCOUNTER 2021-08-17 00:46 | Outpatient (CLI) | payer BC, MEDICARE, SELFPAY ==
--- NOTE | 2021-08-17 07:15 | DI.MAMMO_ITS ---
Exam(s) MAMMO SCREENING EXAM: MAMMO SCREENING CLINICAL HISTORY: screening,z12.39. TECHNIQUE: Bilateral full field digital CC and MLO mammographic images were obtained with 3D tomosyn thesis and utilizing computer aided detection (CAD). COMPARISON: Prior mammograms dating back to 2011, the most recent being August 2020. FINDINGS: No new significant radiograph findings in the left breast. In the right breast on the 3D MLO imaging there is a suggestion of an asymmetric density-possible nod ule measuring 6 x 6 millimeters located approximately 4 cm in from the nipple. There are no malignan t-appearing microcalcification groups in this region or elsewhere in either breast. Small new benign -appearing microcalcification group is noted posteriorly in the left breast. There is no significant architectural distortion nor skin thickening-retraction. IMPRESSION: Asymmetric density-possible new nodule in the right breast. Spot compression right breast MLO view a nd ultrasound recommended. BI-RADS Category 0 - Assessment Incomplete: Need additional imaging evaluation Breast Density - Category C - Heterogeneously dense Breast density Category C or D implies that the patient has dense breast tissue. Dense breast tissue can make it harder to find cancer on a mammogram. Dense breast tissue is also associated with an incr eased risk of breast cancer. This information about the result of the mammogram report was provided to the patient to raise their awareness. Use this report when you speak with the patient about their risks for breast cancer, which includes their family history. At that time, you may recommend additional screening tests (Ultrasoun d or MRI) as these tests may add significant information. A negative radiographic report should not delay biopsy if a dominant or clinically suspicious mass is present. Up to ten percent of cancers are not identified on mammography. A negative report may reinforce clinical impression. Adenosis and dense breasts may obscure an underlying neoplasm. False positive reports average 6 to 10%. Patient will receive a letter notifying them of these results.
== END 2021-08-17 01:06 ==
PROVIDERS: PCP Nurse Practitioner Family; Visit Provider Nurse Practitioner Family
DX: Z12.31 Encounter for screening mammogram for malignant neoplasm of breast (principal); R92.8 Other abnormal and inconclusive findings on diagnostic imaging of breast
CPT/HCPCS: 77063; 77067

== ENCOUNTER 2021-08-26 00:14 | Outpatient (CLI) | payer BC, MEDICARE, SELFPAY ==
--- NOTE | 2021-08-26 10:53 | DI.MAMMO_ITS ---
Exam(s) MG MAMMO SCREEN CALL BACK UNI US BREAST RT COMPLETE EXAM: MG MAMMO SCREEN CALL BACK UNI- RIGHT AND Complete RIGHT BREAST ULTRASOUND CLINICAL HISTORY: ASYMMETRIC DENSITY POSSIBLE NODULE RT BREAST. TECHNIQUE: Unilateral spot mammographic images obtained with 3D tomosynthesisand utilizing computer aided detection (CAD). . Complete RIGHT breast Ultrasound was also performed, including all 4 quadrants, the retroareolar you on, and the ipsilateral axilla. COMPARISON: Prior mammograms were reviewed. This additional imaging was performed due to findings described on the recent screening mammogram of 08/17/2021. FINDINGS: Additional mammographic views performed todayrender this area less concerning. COMPLETE RIGHT BREAST ULTRASOUND: All 4 quadrants were scanned as well as the retroareolar region an d right axilla. Ultrasound performed today reveals no evidence of solid or significant cystic lesions in all 4 quadra nts. No axillary adenopathy. IMPRESSION: No radiographic evidence of malignancy. Also negative complete right breast ultrasound Appropriate follow-up is keep this patient yearly mammogram schedule, with earlier imaging if a self detected breast change is noted.. The patient was informed of these findings and recommendations prior to leaving the department today. BI-RADS Category 2 - Benign Findings Breast Density - Category B - Scattered areas of fibroglandular density Breast density Category C or D implies that the patient has dense breast tissue. Dense breast tissue can make it harder to find cancer on a mammogram. Dense breast tissue is also associated with an incr eased risk of breast cancer. This information about the result of the mammogram report was provided to the patient to raise their awareness. Use this report when you speak with the patient about their risks for breast cancer, which includes their family history. At that time, you may recommend additional screening tests (Ultrasoun d or MRI) as these tests may add significant information. A negative radiographic report should not delay biopsy if a dominant or clinically suspicious mass is present. Up to ten percent of cancers are not identified on mammography. A negative report may reinforce clinical impression. Adenosis and dense breasts may obscure an underlying neoplasm. False positive reports average 6 to 10%. Patient will receive a letter notifying them of these results.
== END 2021-08-26 00:34 ==
PROVIDERS: PCP Nurse Practitioner Family; Visit Provider Nurse Practitioner Family
DX: Z12.31 Encounter for screening mammogram for malignant neoplasm of breast (principal); R92.8 Other abnormal and inconclusive findings on diagnostic imaging of breast
CPT/HCPCS: 76642; 77063; 77067

== ENCOUNTER → 2022-08-18 02:53 | Outpatient (CLI) | payer OTHER, MEDICARE, SELFPAY ==
--- NOTE | 2022-08-18 14:45 | DI.MAMMO_ITS ---
Exam(s) MAMMO SCREENING EXAM: MAMMO SCREENING CLINICAL HISTORY: screening,z12.39 TECHNIQUE: Mammograms were interpreted according to the usual protocol including computer analysis w [employer] CAD system, tomosynthesis and C-view imaging. COMPARISON: FINDINGS: The breasts are heterogeneously dense. No dominant mass or clumped microcalcification is identified in either breast. The current examination is compared with previous examinations including August 2021 and there has been no gross interval change in appearance in comparison with the prior studies. IMPRESSION: No specific evidence of malignancy at this time. Routine screening examinations are suggested at yea rly intervals due to the family history of breast carcinoma. BI-RADS Category 1 - Negative Breast Density - Category C - Heterogeneously dense
== END ==
PROVIDERS: PCP Nurse Practitioner Family; Visit Provider Nurse Practitioner Family
DX: Z12.31 Encounter for screening mammogram for malignant neoplasm of breast (principal); Z80.3 Family history of malignant neoplasm of breast
CPT/HCPCS: 77063; 77067

== ENCOUNTER 2022-11-17 21:25 | Outpatient (REF) | payer MEDICARE, SELFPAY | END 2022-11-17 21:26 | disposition home or self-care (01) | LOC: LBN 21:25 | PROVIDERS: PCP Nurse Practitioner Family; Visit Provider Nurse Practitioner Family | DX: L29.9 Pruritus, unspecified (principal); R30.0 Dysuria | CPT/HCPCS: 87491; 87591; 87086; 87480; 87510; 87660 ==

== ENCOUNTER 2022-12-01 12:23 | Outpatient (REF) | payer MEDICARE, SELFPAY | END 2022-12-01 12:24 | disposition home or self-care (01) | LOC: LBN 12:23 | PROVIDERS: PCP Nurse Practitioner Family; Visit Provider Nurse Practitioner Family | DX: N76.0 Acute vaginitis (principal) | CPT/HCPCS: 87480; 87510; 87660 ==

== ENCOUNTER 2023-04-04 08:21 | Outpatient (CLI) | payer MEDICARE, SELFPAY ==
[2023-04-04 08:34] LABS: Abs Immature Grans 0.01 10^3/uL (0.0-0.06); Absolute Basophil Count 0.04 10^3/uL (0.0-0.2); Absolute Eosinophil Count 0.07 10^3/uL (0.0-0.7); Absolute Lymphocyte Count 1.11 10^3/uL (1.2-3.4); Absolute Monocyte Count 0.46 10^3/uL (0.1-0.8); Absolute Neutrophil Count 3.11 10^3/uL (1.2-6.7); Basophils % 0.8; Eosinophils % 1.5; HCT 40.6 % (36.0-46.0); HGB 13.5 g/dL (11.2-15.7); Immature Grans % 0.2; Lymphocytes % 23.1; MCHC 33.3 % (32.0-36.0); MCV 93 fL (80-95); MPV 9.4 fL (8.0-11.0); Monocytes % 9.6; Neutrophils % 64.8; Platelet Count 237 10^3/uL (130-400); RBC 4.35 10^6/uL (3.93-5.22); RDW-SD 44.3 fL
[2023-04-04 09:04] LABS: ALT 75 U/L (14-59); AST 28 U/L (15-37); Albumin 3.7 g/dL (3.4-5.0); Alkaline Phosphatase 112 U/L (46-116); Anion Gap 6.6 mmol/L (3-11); BUN 14 mg/dL (7-18); Bilirubin, Total 0.4 mg/dL (0.2-1.0); CO2 30.4 mmol/L (21.0-32.0); Calcium 9.1 mg/dL (8.5-10.1); Chloride 103 mmol/L (98-107); Estimated GFR 61.36 (mL/min/1.73m2); Glucose 99 mg/dL (74-106); Lipase 86 U/L (16-77); Potassium 4.3 mmol/L (3.5-5.1); Sodium 140 mmol/L (136-145); Total Protein 7.7 g/dL (6.4-8.2)
[2023-04-04 16:50] LABS: Bilirubin Negative (Negative); Blood Trace-intact (Negative); Clarity Clear (Clear); Glucose Negative (Negative); Ketones 15 mg/dL (Negative); Leukocyte Esterase Moderate (Negative); Nitrite Negative (Negative); Specific Gravity 1.015 (1.005-1.025); Urobilinogen 0.2 mg/dL (Up to 0.2)
[2023-04-04 17:07] LABS: Bacteria Rare HPF (Negative); Crystals Negative HPF (Negative); Epithelial Cells Many HPF (Negative); Mucus Negative (Negative); RBC 0-2 HPF (0-2)
[2023-04-04 17:08] LABS: C & S Indicated? C&S Done As Ordered; Casts Negative LPF (Negative)
== END 2023-04-04 08:22 | disposition home or self-care (01) ==
LOC: LBO 08:22
PROVIDERS: Family Medicine; PCP Nurse Practitioner Family; Visit Provider Nurse Practitioner Family
DX: R10.10 Upper abdominal pain, unspecified (principal); R35.0 Frequency of micturition
CPT/HCPCS: 36415; 80053; 83690; 81003; 81015; 85025; 87086

== ENCOUNTER 2023-04-14 03:42 | Outpatient (CLI) | payer MEDICARE, SELFPAY ==
--- NOTE | 2023-04-14 07:00 | DI.US_ITS ---
Exam(s) US ABDOMEN EXAM: US ABDOMEN CLINICAL HISTORY: RUQ and epigastric pain, R10.10 TECHNIQUE: Ultrasound abdomen performed using standard protocol. COMPARISON: CT CT ABDOMEN PELVIS W from 05/13/2020 FINDINGS: LIVER: Normal size but mildly increased echogenicity consistent with mild hepatic steatosis.. No foc al liver lesions are seen.. GALLBLADDER: Sludge noted. No evidence of cholelithiasis. No evidence of wall thickening. No pericho lecystic fluid identified. BEST'S SIGN: Negative. BILIARY SYSTEM: No intrahepatic or extrahepatic biliary ductal dilation. KIDNEYS: Horseshoe kidney. No evidence of renal calculi. No evidence of hydronephrosis. No renal mas s or cyst identified. PANCREAS: Normal where visualized. SPLEEN: Not enlarged. ABDOMINAL AORTA AND IVC: Visualized portions normal caliber. ASCITES: None seen. IMPRESSION: Gallbladder sludge. No stones or wall thickening. Mild hepatic steatosis. DATA REPOSITORY:
== END 2023-04-14 04:02 ==
PROVIDERS: PCP Nurse Practitioner Family; Visit Provider Nurse Practitioner Family
DX: K82.8 Other specified diseases of gallbladder; K76.0 Fatty (change of) liver, not elsewhere classified
CPT/HCPCS: 76700

== ENCOUNTER → 2023-06-01 02:39 | Outpatient (CLI) | payer MEDICARE, SELFPAY ==
--- NOTE | 2023-06-01 07:30 | DI.NM_ITS ---
Exam(s) [place] HEPATOBILIARY CCK GRP EXAM: [facility] HEPATOBILIARY CCK GRP CLINICAL HISTORY: gallbladder sludge, check EF,k82.8. TECHNIQUE: Injected dose: 5 mCi Tc-99 mebrofenin Initial dynamic images: 60 minutes Post-Gallbladder fillin.02 mcg/kg CCK intravenously over a 30min infusion. Additional images: 30 minute dynamic during CCK administration. COMPARISON: US US ABDOMEN from 04/14/2023 FINDINGS: Normal hepatic transit time. Prompt excretion into the small bowel. Prompt excretion into the gallbladder. Gallbladder ejection fraction: Abnormally low at 3 percent IMPRESSION: 1. Low gallbladder ejection fraction of 3 percent. SNM guidelines: Gallbladder visualization should be present by 3 hours. Delayed apcyjry-yc-llwhq ko sit beyond 60 min raises the suspicion for partial common bile duct (CBD) obstruction. Gallbladder ejection fraction <35% has a good correlation with acalculous disease (i.e., chronic acal culous cholecystitis, cystic duct syndrome, sphincter of Oddi disease).
[2023-06-01] MEDS: Sincalide 5 MCG VIAL 1.4 MCG IJ (11:02)
== END ==
PROVIDERS: PCP Nurse Practitioner Family; Visit Provider Nurse Practitioner Family
DX: K82.8 Other specified diseases of gallbladder (principal)
CPT/HCPCS: 78227; J2805

== ENCOUNTER → 2023-07-06 07:30 | Outpatient (BNVA) | payer MEDICARE, SELFPAY | PROVIDERS: PCP Nurse Practitioner Family; Referring Provider Nurse Practitioner Family; Visit Provider Surgery | DX: K82.9 Disease of gallbladder, unspecified (principal) | CPT/HCPCS: 99203 ==

== ENCOUNTER 2023-07-22 06:15 | Day surgery (SDC) | payer MEDICARE, SELFPAY ==
--- NOTE | 2023-07-21 19:21 | W.PM.DSUDISC ---
Date of service: 07/22/23 Time of Service: 09:17 Discharge Plan Disposition Patient Disposition: Home Condition: Good Discharge Details Reason For Visit: Cholecystectomy Attending Provider: Juancho Holder Primary Care Provider: Sommer Mack Home Meds and New Rx's Prescriptions: New tramadol 50 mg tablet 50 mg PO Q8H PRNQty: 9 0RF Rx Instructions: 1 tablet by mouth up to every 8 hours if needed for severe pain. Continued calcium carbonate [Calcium 500] 500 mg calcium (1,250 mg) tablet 1,500 mg PO DAILY zinc acetate 50 mg (zinc) capsule 50 mg PO DAILY amitriptyline 25 mg tablet 25 mg PO HS Qty: 90 3RF metoprolol succinate [Toprol XL] 25 mg tablet extended release 24 hr 25 mg PO HS Qty: 90 3RF omeprazole 40 mg capsule,delayed release(DR/EC) 40 mg PO DAILY Qty: 90 3RF magnesium 250 mg tablet 250 mg PO DAILY multivitamin 1 EACH tablet 1 tab PO DAILY sodium chloride [Sven 128] 3.5 GM ointment 1 applic OU HS sucralfate [Carafate] 1 gram tablet 1 g PO BID Qty: 180 0RF ascorbic acid (vitamin C) 500 mg Tablet 1,000 mg PO DAILY Discharge Instructions Instructions: Laparoscopic Cholecystectomy (DC) Additional Instructions: Pat, we were able to take after gallbladder today just like we planned. It looks like it has been inflamed for quite some time. Hopefully, the removal of your gallbladder will help you feel much better. Expect to have a little bit of pain in the coming days as some of the anesthesia wears off. I have provided a prescription for a medication called tramadol to help in the case that Tylenol and ibuprofen are insufficient. I would continue to take your sucralfate and omeprazole for now, and we can see how you do in the coming weeks. I look forward to seeing you in the office in follow-up. If you have any questions in the meantime, please do not hesitate to call. 1. Resume all of your medications. 2. Heating pads and ice packs can be used on the incisions to help with discomfort. 3. Use ixwn-eoj-ueabfag tylenol and ibuprofen over the counter as needed. I recommend alternating them. I have also provided a prescription for tramadol if you need it. 4. Leave bandages in place for 24 hours, then remove. 5. Shower with warm soapy water. Pat dry. Use a bandaid if needed to protect your clothing. 6. No soaking or tub baths until I see you in the office. 7. No heavy lifting until I see you in the office. 8. Call the office (or go directly to the emergency room after hours) if you notice any of the following: Develop chills (warm to touch), or if you have a thermometer and your temperature is above 101 Difficulty breathing or difficultly swallowing Persistent vomiting Any bleeding ? exceeding one tablespoon 9. Call your physician if the site where your intravenous was started becomes red, swollen, painful, and warm to touch. Activity:: Activity as Tolerated Remove Dressings/Wound Care:: 24 hours Shower/Bathe:: 24 hours Diet:: As Tolerated Discharge Orders Discharge Orders: Discharge Order (Routine); Ordered 07/22/23 Ordered By: Juancho Holder DS: Diagnosis Discharge Diagnosis (1) Biliary dyskinesia: Status: Acute
[2023-07-22] VITALS (11 sets, daily range): BP systolic 105–135; BP diastolic 67–90; PULSE 51–80; RESP 11–23; TEMP 36.2–36.8; O2SAT 93–100; BMI 33.0
[2023-07-22] MEDS: Celecoxib 200 MG CAP PO (06:48)
[2023-07-22] MEDS: Gabapentin 300 MG CAP 600 MG PO (06:48)
[2023-07-22] MEDS: Acetaminophen 500 MG TAB 1000 MG PO (06:48)
[2023-07-22] MEDS: Normal Saline Flush 10 ML SYR IV (07:13)
[2023-07-22] MEDS: Indocyanine green 25 MG VIAL 5 MG IVP (07:13)
[2023-07-22] MEDS: Lactated Ringers 1,000 ML 80 ML IV (07:13)
--- NOTE | 2023-07-22 07:15 | W.ANESPRE ---
General Info Date of Service Date Performed: 07/22/23 Height: 5 ft 5 in Weight: 90 kg Body Mass Index (BMI): 33.0 Surgical Procedure: Operation Date: 07/22/23 07:40 Proposed Procedure Side Surgeon p Cholecystectomy Laparoscopic Juancho Holder MD Meds Allergies and Home Medications Allergies Allergy/AdvReac Type Severity Reaction Status Date / Time doxycycline Allergy Intermediate RASH Verified 07/22/23 07:21 Home Medication Medication Instructions Recorded multivitamin 1 tab PO DAILY 01/05/13 sodium chloride 5 % eye ointment 1 applic OU HS 03/07/13 (Sven 128) calcium carbonate 500 mg calcium 1,500 mg PO DAILY 05/09/20 (1,250 mg) tablet (Calcium 500) ascorbic acid (vitamin C) 500 mg 1,000 mg PO DAILY 06/04/20 tablet amitriptyline 25 mg tablet 25 mg PO HS #90 tab-caps 07/22/22 metoprolol succinate 25 mg 25 mg PO HS #90 tab-caps 07/22/22 tablet,extended release 24 hr (Toprol XL) zinc acetate 50 mg (zinc) capsule 50 mg PO DAILY 07/22/22 omeprazole 40 mg capsule,delayed 40 mg PO DAILY #90 caps 04/21/23 release sucralfate 1 gram tablet (Carafate) 1 g PO BID #180 tabs 05/19/23 magnesium 250 mg tablet 250 mg PO DAILY 07/06/23 Current Visit Medications: Current Medications Generic Name Dose Route Start Last Admin Trade Name Freq PRN Reason Stop Dose Admin Acetaminophen 1,000 mg 07/22/23 06:00 07/22/23 06:48 Acetaminophen 500 Mg Tab PO 08/20/23 23:59 1,000 mg PREOP JAEL Administration Celecoxib 200 mg 07/22/23 06:00 07/22/23 06:48 Celecoxib 200 Mg Cap PO 08/20/23 23:59 200 mg PREOP JAEL Administration Gabapentin 600 mg 07/22/23 06:00 07/22/23 06:48 Gabapentin 300 Mg Cap PO 08/20/23 23:59 600 mg PREOP JAEL Administration Ringer's Solution 1,000 mls @ 80 mls/hr 07/22/23 06:00 IV 08/20/23 23:59 INFUSION JAEL Cefazolin Sodium/Dextrose 2 gm in 50 mls @ 100 mls/hr 07/22/23 06:00 Ancef Duplex IVPB 12/09/23 23:59 PREOP JAEL IV Miscellaneous Supplies 1 each 07/22/23 06:00 Iv Access IV 08/20/23 23:59 DIRECTED JAEL Indocyanine Green 5 mg 07/22/23 06:00 Indocyanine Green 25 Mg Vial IVP 07/22/23 23:59 DIRECTED JAEL Sodium Chloride 0 ml 07/22/23 06:00 Normal Saline Flush 10 Ml Syr IV 08/20/23 23:59 PRN PRN Sodium Chloride 0 ml 07/22/23 06:00 Normal Saline 10 Ml Vial IJ 08/20/23 23:59 DIRECTED PRN Sterile Water 0 ml 07/22/23 06:00 Water,Injection,Sterile 10 Ml Vial IJ 08/20/23 23:59 DIRECTED PRN PFSH Active Problems Active Problems: Problem Status Onset Code Biliary dyskinesia K82.8 GERD (gastroesophageal reflux disease) K21.9 Gallbladder sludge K82.8 Fuchs' corneal dystrophy Essential hypertension I10 Hyperlipidemia E78.5 Major depressive disorder in full remission F32.5 Medical History Medical History Right upper quadrant abdominal pain [facility] 04/04/23. -hb COVID-19 virus infection (~05/2022) Thickened endometrium Negative endometrial biopsy 05/01 Prediabetes Subdural hematoma (~12/2018) Tubular adenoma of colon (~2009) Surgical History Surgical History S/P colonoscopy (06/04/20) Hx of oral surgery (12/20/16) Oral fibroma removal Tobacco Smoking/Tobacco Use Status: Never Passive smoking exposure: Yes Second hand exposure: Yes Alcohol Alcohol Intake: current Alcohol intake frequency: holidays/special occasions only Substance Use Substance use: Never Substance use type: does not use Counseling provided: none Prental History History 0 Para Hx # Term Pregnancies Multiple births Hx # Pregnancies Ectopic pregnancies AB induced Hx Number of Living Children AB spontaneous Vital Signs and Lab Results Vital Signs Most Recent Vital Signs in EMR: Most Recent Vital Signs Temp Pulse Resp BP Pulse Ox 36.8 C 80 18 116/79 97 07/22/23 06:16 07/22/23 06:16 07/22/23 06:16 07/22/23 06:16 07/22/23 06:16 Lab Results Blood Type / Crossmatch: No Data to Display Complete Blood Count: No Data to Display Complete Metabolic Panel: No Data to Display Liver Function Panel: No Data to Display Coagulation Panel: No Data to Display Cardiac Panel: No Data to Display Arterial Blood Gas: No Data to Display Venous Blood Gas: No Data to Display Pancreas Panel: No Data to Display Thyroid Panel: No Data to Display Infectious Disease: No Data to Display Blood Cultures: No Data to Display Toxicology Panel: No Data to Display Anesthesia Assessment and Plan Anesthesia History Personal History: No History of Anesthesia Complications Family History: No Family History of Anesthesia Complications Exercise Tolerance Exercise Tolerance: Metabolic Equivalents>4 Pertinent Negatives Pertinent Negatives: No Major Cardiovascular Symptoms or Complaints, No Major Pulmonary Symptoms or Complaints and No History of CVA/TIA Cardiac & Pulmonary Exam Cardiac Exam: Normal S1/S2 Heart Sounds Pulmonary Exam: Clear Bilateral Breath Sounds Implantable Cardiac Device Does patient have a Pacemaker or an ICD?: No Airway Exam Known Difficult Airway: No Mallampati Class: 3 Mouth Opening: Narrow (< 3cm) Thyromental Distance: Greater than 3 cm Neck Range of Motion: Full ROM Neck Circumference: Thick Teeth Condition: Normal Dentition ASA Classification ASA Score: ASA 2 Emergency Case?: No NPO Status NPO Status: NPO Clears >2 hours, Solids >8 hours Anesthesia Plan Resuscitation Status: Full Code Anesthesia Technique: General Anesthesia Airway Planned: Endotracheal Tube Monitors Used: Standard Monitors
[2023-07-22] MEDS: ceFAZolin 2 GM/50 ML BAG IVPB (07:44)
[2023-07-22] MEDS: Bupivacaine 0.25% Pres-Free 30 ML VIAL (08:41)
--- NOTE | 2023-07-22 08:57 | GB_PTH ---
PATIENT: Iona Montez LOC: [facility] U#:[id number] AGE/SX: 67/F ROOM: RE07/22/[address]: Juancho Holder MD : [id number] BED: DIS: 07/22/2023 SPEC #: [id number] RECD: 07/22/23 12:05 STATUS: AAKASH REQ #: [id number] PABLO: 07/22/23 08:[address]: Juancho Holder DEPT: Surgical Specimen RECD BY: Mily Madden ENTERED: 07/22/23 12:05 SP TYPE: GB OTHR DR: RAE Cole Tissues: 1 - GALLBLADDER Procedures: GROSS AND MICRO LEVEL 3 Comments: [id number]
[2023-07-22] MEDS: fentaNYL 100 MCG/2 ML VIAL IVP ×2 (09:35→10:13)
[2023-07-22] MEDS: Normal Saline 10 ML VIAL IJ (09:44)
[2023-07-22] MEDS: LORazepam 2 MG/ML VIAL 0.5 MG IVP (09:44)
[2023-07-22] MEDS: traMADol 50 MG TAB PO (11:29)
--- NOTE | 2023-07-22 11:56 | W.PM.OP ---
Date of service: 07/22/23 Time of Service: 11:56 Operative Note Operative Note DATE OF PROCEDURE: 07/22/23 PRE-OP DIAGNOSIS: Biliary dyskinesia POST-OP DIAGNOSIS: same PROCEDURE: Laparoscopic cholecystectomy SURGEON: Juancho Holder [employer] OPERATION: Gabriella Stone ANESTHESIA TYPE: General LMA/ETT Refer to Anesthesia Record ESTIMATED BLOOD LOSS: 20 PATHOLOGY: other (Gallbladder) COMPLICATIONS: None Patient was transported to: PACU Patient's condition: stable Indications: Ryann is a 67-year-old woman with chronic midepigastric discomfort. She underwent a HIDA scan that demonstrated biliary dyskinesia. Findings: Distended gallbladder Procedure Description: After satisfactory induction of general anesthesia, I prepped and draped the abdomen in usual fashion. Next, I began with a periumbilical incision. I dissected down to the fascia and elevated it with Matheus clamps. I incised it sharply. Next, I passed a 12 mm operating port in the umbilical site. I secured it to the fascia with 0 Vicryl stitches. I then insufflated the peritoneal cavity. Next I inserted a 10 mm 30 degree scope and examined the underlying viscera. There was no evidence of injury created upon entry. I then placed the patient in some reverse Trendelenburg and left side down positioning. Then, with the assistance of the laparoscope, I used local anesthetic to anesthetize the midepigastric and 2 right upper quadrant port sites. Under the vision of the laparoscope, I passed 2 more 5 mm ports. I put another 12 mm port in the mid epigastric position. I then grasped the gallbladder fundus and elevated cephalad. The gallbladder was quite distended, and a little bit difficult to grasp and maintain. Therefore, I decompressed it with a needle and syringe. Great care was taken to minimize spillage, and access site was used with the grasper as part of the retraction. I began by dissecting the gallbladder infundibulum. I worked in a lateral to medial fashion. Once I skeletonized the cystic duct and cystic artery, with a satisfactory critical view of safety, I doubly clipped and divided them. I then used electrocautery to dissect the gallbladder off the gallbladder fossa. I passed the gallbladder into an Endo Catch bag and removed it by way of the umbilical site. I examined the surgical field. It was hemostatic. I then removed the 5 mm ports under the vision of the laparoscope. Finally, I removed the umbilical port site and closed the fascia with Vicryl stitches. Sites were irrigated, and the skin was closed with subcuticular stitches. Bandages were applied, patient was awakened from anesthesia, and transferred to the recovery unit.
--- NOTE | 2023-07-22 12:22 | W.ANESPOSTOP ---
Postoperative Evaluation Date, Time and Location Date Performed: 07/22/23 Time Performed: 12:22 Patient Location: Day Surgery Unit Vital Signs Most Recent Imported Vital Signs: Most Recent Vital Signs Temp Pulse Resp BP Pulse Ox 36.3 C L 65 16 135/90 100 07/22/23 11:18 07/22/23 11:53 07/22/23 11:53 07/22/23 11:53 07/22/23 11:53 Pain Score Most Recent Pain Score: Most Recent Pain Score Pain Level 5 07/22/23 11:53 Assessment Mental Status: Awake (Alert & Oriented to Patient Baseline) Airway and Respiratory Function: Patent airway with normal (patient baseline) respiratory exam Cardiovascular Function: Hemodynamically Stable Hydration Status: Adequately Hydrated Nausea & Vomiting: No Nausea or Vomiting Pain: Pain is tolerable per patient Peripheral Nerve Block: Patient did not receive a nerve block
== END 2023-07-22 12:23 | disposition home or self-care (01) ==
PROVIDERS: PCP Nurse Practitioner Family; Visit Provider Surgery
PROC: 0FT44ZZ Resection of Gallbladder, Percutaneous Endoscopic Approach (ICD-10-PCS; CPT 47562; principal; 2023-07-22 07:30)
DX: K82.8 Other specified diseases of gallbladder (principal); I10 Essential (primary) hypertension
CPT/HCPCS: 47562; 88304; J0690; J1100; J2001; J2060; J2405; J2704; J3010

== ENCOUNTER → 2023-08-10 07:27 | Outpatient (BNVA) | payer MEDICARE, SELFPAY | PROVIDERS: PCP Nurse Practitioner Family; Referring Provider Nurse Practitioner Family; Visit Provider Surgery | DX: Z48.815 Encounter for surgical aftercare following surgery on the digestive system (principal) ==

== ENCOUNTER → 2023-08-19 00:47 | Outpatient (CLI) | payer MEDICARE, SELFPAY ==
--- NOTE | 2023-08-19 09:15 | DI.MAMMO_ITS ---
Exam(s) MAMMO SCREENING EXAM: MAMMO SCREENING CLINICAL HISTORY: screening, Z12.39. TECHNIQUE: Bilateral full field digital CC and MLO mammographic images were obtained with 3D tomosyn thesis and utilizing computer aided detection (CAD). COMPARISON: Prior mammograms were reviewed. FINDINGS: There has been no significant change in the appearance and distribution of the fibroglandular tissue. There are no new spiculated masses nor malignant appearing microcalcification groups. There is no significant architectural distortion nor skin thickening-retraction. IMPRESSION: No radiographic evidence of malignancy. BI-RADS Category 1 - Negative Breast Density - Category C - Heterogeneously dense Breast density Category C or D implies that the patient has dense breast tissue. Dense breast tissue can make it harder to find cancer on a mammogram. Dense breast tissue is also associated with an incr eased risk of breast cancer. This information about the result of the mammogram report was provided to the patient to raise their awareness. Use this report when you speak with the patient about their risks for breast cancer, which includes their family history. At that time, you may recommend additional screening tests (Ultrasoun d or MRI) as these tests may add significant information. A negative radiographic report should not delay biopsy if a dominant or clinically suspicious mass is present. Up to ten percent of cancers are not identified on mammography. A negative report may reinforce clinical impression. Adenosis and dense breasts may obscure an underlying neoplasm. False positive reports average 6 to 10%. Patient will receive a letter notifying them of these results.
== END ==
PROVIDERS: PCP Nurse Practitioner Family; Visit Provider Nurse Practitioner Family
DX: Z12.31 Encounter for screening mammogram for malignant neoplasm of breast (principal)
CPT/HCPCS: 77063; 77067

== ENCOUNTER 2023-09-26 05:22 | Outpatient (CLI) | payer MEDICARE, SELFPAY ==
[2023-09-26 12:45] LABS: ALT 32 U/L (14-59); AST 16 U/L (15-37); Albumin 3.5 g/dL (3.4-5.0); Alkaline Phosphatase 120 U/L (46-116); Anion Gap 5.8 mmol/L (3-11); BUN 19 mg/dL (7-18); Bilirubin, Total 0.3 mg/dL (0.2-1.0); CO2 31.2 mmol/L (21.0-32.0); Calcium 9.3 mg/dL (8.5-10.1); Calculated LDL 116 mg/dL (<100); Chloride 104 mmol/L (98-107); Cholesterol 178 mg/dL (<200); Estimated GFR 61.36 (mL/min/1.73m2); Glucose 93 mg/dL (74-106); HDL Cholesterol 37 mg/dL (40-60); Potassium 4.3 mmol/L (3.5-5.1); Sodium 141 mmol/L (136-145); Total Protein 7.4 g/dL (6.4-8.2); Triglyceride 125 mg/dL (<150)
[2023-09-26 12:53] LABS: Hemoglobin A1C 5.5 % (<5.7)
[2023-09-26 20:13] LABS: Hepatitis C Ab w Rflx HCV PCR Negative (Negative)
== END 2023-09-26 05:23 | disposition home or self-care (01) ==
LOC: LOS 05:22
PROVIDERS: PCP Nurse Practitioner Family; Visit Provider Nurse Practitioner Family
DX: E78.5 Hyperlipidemia, unspecified (principal); R73.03 Prediabetes; Z00.00 Encounter for general adult medical examination without abnormal findings
CPT/HCPCS: 36415; 80053; 80061; 86803; 83036

== ENCOUNTER 2024-05-03 08:11 | Outpatient (REF) | payer MEDICARE, SELFPAY ==
[2024-05-03 12:58] LABS: Bilirubin Negative (Negative); Blood Trace-intact (Negative); Clarity Sl Cloudy (Clear); Glucose Negative (Negative); Ketones Negative (Negative); Leukocyte Esterase Moderate (Negative); Nitrite Negative (Negative); Specific Gravity 1.015 (1.005-1.025); Urobilinogen 0.2 mg/dL (Up to 0.2)
[2024-05-03 13:03] LABS: Bacteria Few HPF (Negative); C & S Indicated? C&S Done As Ordered; Casts Negative LPF (Negative); Crystals Negative HPF (Negative); Epithelial Cells Many HPF (Negative); Mucus Negative (Negative)
== END 2024-05-03 08:12 | disposition home or self-care (01) ==
LOC: LBN 08:11
PROVIDERS: PCP Nurse Practitioner Family; Visit Provider Nurse Practitioner Family
DX: N30.90 Cystitis, unspecified without hematuria (principal); R30.0 Dysuria; N76.0 Acute vaginitis
CPT/HCPCS: 81003; 81015; 87086; 87480; 87510; 87660

== ENCOUNTER 2024-06-25 13:09 | Outpatient (REF) | payer MEDICARE, SELFPAY | END 2024-06-25 13:10 | disposition home or self-care (01) | LOC: LBN 13:09 | PROVIDERS: PCP Nurse Practitioner Family; Visit Provider Nurse Practitioner Family | DX: R30.0 Dysuria (principal) | CPT/HCPCS: 87480; 87510; 87660 ==

== ENCOUNTER 2024-07-10 10:01 | Outpatient (REF) | payer MEDICARE, SELFPAY | END 2024-07-10 10:02 | disposition home or self-care (01) | LOC: LBN 10:01 | PROVIDERS: PCP Nurse Practitioner Family; Visit Provider Physician Assistant | DX: R30.0 Dysuria (principal); R10.9 Unspecified abdominal pain | CPT/HCPCS: 87480; 87510; 87660 ==

== ENCOUNTER 2024-07-10 12:39 | Outpatient (CLI) | payer MEDICARE, SELFPAY ==
--- NOTE | 2024-07-10 10:00 | DI.RAD_ITS ---
Exam(s) XR ABDOMEN FLAT UPRIGHT EXAM: 2D digital imaging was performed. CLINICAL HISTORY: lower abdominal discomfort R10.9 ABD PAIN. COMPARISON: CT CT ABDOMEN PELVIS W from 05/13/2020 TECHNIQUE: Supine and uprightSupine and Lateral views of the abdomen were performed. FINDINGS: BOWEL GAS PATTERN: Nondistended.No free air. Stool seen in right side of colon. CALCIFICATIONS: No urinary tract calcifications. OSSEOUS STRUCTURES: Degenerative changes and mild scoliosis. Visualized portions of chest: Unremarkable. Soft tissues: Right upper quadrant surgical clips. IMPRESSION: 1. Nonobstructive bowel gas pattern. 2. No radiopaque calculi. 3. No free air. DATA REPOSITORY: RADIATION DOSE DELIVERED:
== END 2024-07-10 12:59 ==
PROVIDERS: PCP Nurse Practitioner Family; Visit Provider Physician Assistant
DX: R10.9 Unspecified abdominal pain (principal)
CPT/HCPCS: 74019

== ENCOUNTER 2024-07-11 00:56 | Outpatient (CLI) | payer MEDICARE, SELFPAY ==
--- NOTE | 2024-07-11 06:45 | DI.US_ITS ---
Exam(s) US PELVIS TRANSVAGINAL EXAM: US PELVIS TRANSVAGINAL CLINICAL HISTORY: evaluate pathology,hx of thickened endometrium,ABD PAIN,R10.9 TECHNIQUE: Transabdominal and transvaginal imaging was performed using standard protocol. COMPARISON: US US PELVIS TRANSVAGINAL from 04/21/2020 FINDINGS: The bladder is unremarkable. UTERUS: Anteverted. 8.8 x 4.1 x 5.6 cm Endometrium: 9 mm, Thickened for postmenopausal patient. heterogeneous but no visible focal mass. S imilar appearance to prior. No hypervascularity. Myometrium: Anterior fibroid measuring 1.8 cm. Cervix: Unremarkable. OVARIES: Right: Cyst or mass: None. Left: Cyst or mass: None. DOPPLER: Color: Symmetric and uniform flow to both ovaries. No hyperemia. CUL-DE-SAC: Free fluid: None. IMPRESSION: 1. Thickened and heterogeneous endometrial stripe measuring 9 millimeters . 2. Unremarkable bilateral ovaries. 3. Small anterior myometrial fibroid. DATA REPOSITORY:
== END 2024-07-11 01:16 ==
LOC: DI 00:56
PROVIDERS: PCP Nurse Practitioner Family; Visit Provider Nurse Practitioner Family
DX: R10.9 Unspecified abdominal pain (principal)
CPT/HCPCS: 76830; 76856

== ENCOUNTER 2024-07-16 15:18 | Outpatient (REF) | payer MEDICARE, SELFPAY ==
[2024-07-16 16:19] LABS: Bilirubin Negative (Negative); Blood Moderate (Negative); Clarity Clear (Clear); Glucose Negative (Negative); Ketones Negative (Negative); Leukocyte Esterase Negative (Negative); Nitrite Negative (Negative); Specific Gravity 1.015 (1.005-1.025); Urobilinogen 0.2 mg/dL (Up to 0.2)
[2024-07-16 16:36] LABS: Bacteria Rare HPF (Negative); C & S Indicated? No; Casts Negative LPF (Negative); Crystals Negative HPF (Negative); Epithelial Cells Moderate HPF (Negative); Mucus Negative (Negative); WBC Negative HPF (0-5)
== END 2024-07-16 15:19 | disposition home or self-care (01) ==
LOC: LBN 15:18
PROVIDERS: PCP Nurse Practitioner Family; Visit Provider Nurse Practitioner Family
DX: N95.0 Postmenopausal bleeding (principal); D25.9 Leiomyoma of uterus, unspecified; R93.89 Abnormal findings on diagnostic imaging of other specified body structures
CPT/HCPCS: 81003; 81015

== ENCOUNTER 2024-07-16 15:48 | Outpatient (REF) | payer MEDICARE, SELFPAY ==
--- NOTE | 2024-07-16 15:00 | ENDOMET_PTH ---
PATIENT: Iona Montez LOC: [facility] U#:[id number] AGE/SX: 68/F ROOM: RE07/16/[address]: Fatuma Anne DO : 1955 BED: DIS: 07/16/2024 SPEC #: [id number] RECD: 07/16/24 17:58 STATUS: SOUKrystle REQ #: [id number] PABLO: 07/16/24 15:[address]: Fatuma Anne DEPT: Surgical Specimen RECD BY: Mily Madden ENTERED: 07/16/24 17:58 SP TYPE: Endomet OTHR DR: RAE Cole Tissues: 1 - ENDOMETRIUM BX/HAILEE Procedures: GROSS AND MICRO LEVEL 4 Comments: [id number]
== END 2024-07-16 15:49 | disposition home or self-care (01) ==
LOC: LBN 15:48
PROVIDERS: PCP Nurse Practitioner Family; Visit Provider Obstetrics & Gynecology
DX: N95.0 Postmenopausal bleeding (principal); D25.9 Leiomyoma of uterus, unspecified; R93.89 Abnormal findings on diagnostic imaging of other specified body structures
CPT/HCPCS: 88305

== ENCOUNTER 2024-07-19 12:00 | Outpatient (CLI) | payer MEDICARE, SELFPAY ==
[2024-07-19 12:35] LABS: Absolute Basophil Count 0.02 10^3/uL (0.0-0.2); Absolute Eosinophil Count 0.02 10^3/uL (0.0-0.7); Absolute Lymphocyte Count 0.55 10^3/uL (1.2-3.4); Absolute Monocyte Count 0.48 10^3/uL (0.1-0.8); Absolute Neutrophil Count 3.35 10^3/uL (1.2-6.7); Basophils % 0.5 %; Eosinophils % 0.5 %; HGB 13.6 g/dL (11.2-15.7); Lymphocytes % 12.4 %; MCH 31.2 pg (27.0-33.0); MCHC 34.9 % (32.0-36.0); MCV 89 fL (80-95); MPV 8.8 fL (8.0-11.0); Monocytes % 10.9 %; Neutrophils % 75.7 %; Platelet Count 260 10^3/uL (130-400); RBC 4.36 10^6/uL (3.93-5.22); RDW 12.5 % (11.7-14.6); RDW-SD 41.5 fL; WBC 4.42 10^3/uL (4.4-10.8)
[2024-07-19 13:30] LABS: Bilirubin Negative (Negative); Blood Large (Negative); Clarity Clear (Clear); Glucose Negative (Negative); Ketones Negative (Negative); Leukocyte Esterase Negative (Negative); Nitrite Negative (Negative); Urobilinogen 0.2 mg/dL (Up to 0.2)
[2024-07-19 13:41] LABS: ALT 47 U/L (14-59); AST 28 U/L (15-37); Albumin 3.7 g/dL (3.4-5.0); Alkaline Phosphatase 113 U/L (46-116); Anion Gap 7.4 mmol/L (3-11); BUN 10 mg/dL (7-18); Bilirubin, Total 0.42 mg/dL (0.2-1.0); CO2 28.6 mmol/L (21.0-32.0); CREATININE 0.9 mg/dL (0.55-1.02); Calcium 9.2 mg/dL (8.5-10.1); Chloride 92 mmol/L (98-107); Glucose 87 mg/dL (74-106); Sodium 128 mmol/L (136-145); TSH (W/Ref FT4) 1.79 uIU/mL (0.36-3.74); Total Protein 7.7 g/dL (6.4-8.2)
[2024-07-19 14:05] LABS: Bacteria Few HPF (Negative); Crystals Negative HPF (Negative); Epithelial Cells Many HPF (Negative); Mucus Negative (Negative); Other Cells Negative (Negative)
[2024-07-19 14:06] LABS: C & S Indicated? No/Sq. Contamination; Casts Negative LPF (Negative)
[2024-07-19 22:57] LABS: HIV-1/2 Ag & Ab Screen Negative (Negative)
[2024-07-19 22:59] LABS: HBs Antibody, Quant <3.1 mIU/mL (See Note); Hep B Surface Ab Negative (See Note); Hepatitis B Core Antibody Negative (Negative); Hepatitis B Surface Antigen Negative (Negative)
== END 2024-07-19 12:01 | disposition home or self-care (01) ==
LOC: LBO 12:02
PROVIDERS: PCP Nurse Practitioner Family; Visit Provider Nurse Practitioner Family
DX: R31.29 Other microscopic hematuria (principal); K59.00 Constipation, unspecified; Z11.4 Encounter for screening for human immunodeficiency virus [HIV]; Z11.59 Encounter for screening for other viral diseases; R19.8 Other specified symptoms and signs involving the digestive system and abdomen
CPT/HCPCS: 36415; 80053; 86704; 86706; 87340; 87389; 81003; 81015; 84443; 85025

== ENCOUNTER 2024-07-26 01:12 | Outpatient (CLI) | payer MEDICARE, SELFPAY ==
[2024-07-26] MEDS: Normal Saline - Diluent 50 ML VIAL IJ (16:23)
[2024-07-26] MEDS: Omnipaque 350 MG/ML 100 ML BTL IJ (16:24)
--- NOTE | 2024-07-26 16:47 | DI.CT_ITS ---
Exam(s) CT ABDOMEN PELVIS WO/W EXAM: CT ABDOMEN PELVIS WO/W CLINICAL HISTORY: hematuria,r31.29 TECHNIQUE: Imaging Protocol: Axial computed tomography images with coronal and sagittal reformatted images were created and reviewed. CONTRAST MATERIAL: Intravenous: Omnipaque 350 Contrast volume:100 mL Oral: No COMPARISON: CT CT ABDOMEN PELVIS W from 05/13/2020 FINDINGS: ABDOMEN: Lung Bases: Normal where visualized. Liver: Normal density. There is a tiny hypodensity in the left lobe of the liver. It is too small fo r further characterization but likely reflects a small cyst. No suspicious hepatic masses are presen t. Portal, Superior Mesenteric, and Splenic Veins: Unremarkable. Gallbladder and Biliary Tract: Status post cholecystectomy. Pancreas: Normal density, no abnormal calcifications or inflammatory process. Spleen: There is an unchanged tiny hypodensity in the inferior spleen which may represent a cyst or h emangioma. No suspicious splenic masses are seen. Adrenals: No masses seen. Kidneys: The patient has a horseshoe kidney. There is a stable cyst in the superior pole of the left kidney. No follow-up is recommended. No suspicious renal masses are present. No radiodense stones or obstructive uropathy. Abdominal Aorta: Abdominal portion non-dilated. Bowel: No obstruction or bowel wall thickening. No dense of appendicitis. Peritoneal Cavity: No ascites, collection or mesenteric inflammatory response. No free air. Lymph Nodes: Within normal limits. Bones: Within normal limits for the patient's age. Soft Tissues: Unremarkable. PELVIS: Bladder: Symmetric distention, no gross wall thickening. Reproductive Organs: Unremarkable as visualized. Lymph Nodes: Within normal limits. Bones: Within normal limits for the patient's age. IMPRESSION: 1. No evidence of nephrolithiasis or hydronephrosis. 2. No suspicious renal mass. Stable simple left renal cysts. No follow-up is recommended. 3. No CT evidence of a bladder mass. 4. No acute abdominal or pelvic process. RADIATION DOSE DELIVERED: 1,817.32mGy.cm Total DLP 1,817.32mGy.cm Total DLP DATA REPOSITORY: All CT scans at this facility are submitted to the National Radiology Data Registry (NRDR) Dose Index Registry (DIR) with the [employer] ([employer]). RADIATION OPTIMIZATION: All CT scans at this facility use at least one of these dose optimization te chniques: automated exposure control; mA and/or kV adjustment per patient size (includes targeted exa ms where dose is matched to clinical indication); or iterative reconstruction.
== END 2024-07-26 01:32 ==
LOC: DI 01:12
PROVIDERS: PCP Nurse Practitioner Family; Visit Provider Nurse Practitioner Family
DX: R31.29 Other microscopic hematuria (principal)
CPT/HCPCS: 74178; J3490

== ENCOUNTER 2024-08-02 10:46 | Outpatient (CLI) | payer MEDICARE, SELFPAY ==
[2024-08-02 12:54] LABS: Anion Gap 4.8 mmol/L (3-11); BUN 12 mg/dL (7-18); CO2 28.2 mmol/L (21.0-32.0); CREATININE 1.1 mg/dL (0.55-1.02); Calcium 9.3 mg/dL (8.5-10.1); Chloride 102 mmol/L (98-107); Estimated GFR 54.39 (mL/min/1.73m2); Glucose 88 mg/dL (74-106); Potassium 4.7 mmol/L (3.5-5.1); Sodium 135 mmol/L (136-145)
[2024-08-02 13:13] LABS: Bilirubin Negative (Negative); Blood Moderate (Negative); Clarity Clear (Clear); Glucose Negative (Negative); Ketones Negative (Negative); Leukocyte Esterase Negative (Negative); Nitrite Negative (Negative); Specific Gravity 1.015 (1.005-1.025); Urobilinogen 0.2 mg/dL (Up to 0.2)
[2024-08-02 13:45] LABS: Bacteria Negative HPF (Negative); C & S Indicated? No; Casts Negative LPF (Negative); Crystals Negative HPF (Negative); Epithelial Cells Few HPF (Negative); Mucus Trace (Negative); WBC 0-2 HPF (0-5)
== END 2024-08-02 10:47 | disposition home or self-care (01) ==
LOC: LOS 10:46
PROVIDERS: PCP Nurse Practitioner Family; Referring Provider Nurse Practitioner Family; Visit Provider Nurse Practitioner Family
DX: E87.1 Hypo-osmolality and hyponatremia (principal); R31.29 Other microscopic hematuria
CPT/HCPCS: 36415; 80048; 81003; 81015

== ENCOUNTER 2024-08-10 16:39 | Outpatient (REF) | payer MEDICARE, SELFPAY ==
[2024-08-10 21:00] LABS: Bilirubin Negative (Negative); Blood Moderate (Negative); Clarity Clear (Clear); Glucose Negative (Negative); Ketones Negative (Negative); Leukocyte Esterase Negative (Negative); Nitrite Negative (Negative); Specific Gravity 1.015 (1.005-1.025); Urobilinogen 0.2 mg/dL (Up to 0.2); pH 7.5 (5-8)
[2024-08-10 21:07] LABS: Bacteria Few HPF (Negative); C & S Indicated? No; Casts Negative LPF (Negative); Crystals Negative HPF (Negative); Epithelial Cells Few HPF (Negative); Mucus Negative (Negative); WBC Negative HPF (0-5)
== END 2024-08-10 16:40 | disposition home or self-care (01) ==
LOC: LBN 16:39
PROVIDERS: PCP Nurse Practitioner Family; Visit Provider Nurse Practitioner Family
DX: R31.29 Other microscopic hematuria (principal)
CPT/HCPCS: 81003; 81015

== ENCOUNTER 2024-08-29 13:03 | Outpatient (REF) | payer MEDICARE, SELFPAY | END 2024-08-29 13:04 | disposition home or self-care (01) | LOC: LBN 13:03 | PROVIDERS: PCP Nurse Practitioner Family; Visit Provider Nurse Practitioner Family | DX: N89.8 Other specified noninflammatory disorders of vagina (principal); N90.89 Other specified noninflammatory disorders of vulva and perineum | CPT/HCPCS: 87480; 87510; 87660 ==

== ENCOUNTER → 2024-08-29 13:27 | Outpatient (BNVA) | payer MEDICARE, SELFPAY | PROVIDERS: PCP Nurse Practitioner Family; Referring Provider Nurse Practitioner Family; Visit Provider Podiatrist | DX: L60.3 Nail dystrophy (principal); B35.1 Tinea unguium; B35.3 Tinea pedis | CPT/HCPCS: 99213 ==

== ENCOUNTER 2024-10-05 00:51 | Outpatient (CLI) | payer MEDICARE, SELFPAY ==
--- NOTE | 2024-10-05 06:30 | DI.MAMMO_ITS ---
Exam(s) MAMMO SCREENING EXAM: MAMMO SCREENING CLINICAL HISTORY: screening,z12.39. TECHNIQUE: Bilateral full field digital CC and MLO mammographic images were obtained with 3D tomosyn thesis and utilizing computer aided detection (CAD). COMPARISON: Prior mammograms were reviewed. FINDINGS: There has been no significant change in the appearance and distribution of the fibroglandular tissue. There are no new spiculated masses nor malignant appearing microcalcification groups. There is no significant architectural distortion nor skin thickening-retraction. IMPRESSION: No radiographic evidence of malignancy. BI-RADS Category 1 - Negative Breast Density - Category C - Heterogeneously dense Breast density Category C or D implies that the patient has dense breast tissue. Dense breast tissue can make it harder to find cancer on a mammogram. Dense breast tissue is also associated with an incr eased risk of breast cancer. This information about the result of the mammogram report was provided to the patient to raise their awareness. Use this report when you speak with the patient about their risks for breast cancer, which includes their family history. At that time, you may recommend additional screening tests (Ultrasoun d or MRI) as these tests may add significant information. A negative radiographic report should not delay biopsy if a dominant or clinically suspicious mass is present. Up to ten percent of cancers are not identified on mammography. A negative report may reinforce clinical impression. Adenosis and dense breasts may obscure an underlying neoplasm. False positive reports average 6 to 10%. Patient will receive a letter notifying them of these results.
== END 2024-10-05 01:11 ==
LOC: DI 00:51
PROVIDERS: PCP Nurse Practitioner Family; Visit Provider Nurse Practitioner Family
DX: Z12.31 Encounter for screening mammogram for malignant neoplasm of breast (principal); R92.333 Mammographic heterogeneous density, bilateral breasts
CPT/HCPCS: 77063; 77067

== ENCOUNTER 2024-11-02 00:18 | Outpatient (CLI) | payer MEDICARE, SELFPAY ==
--- NOTE | 2024-11-02 07:15 | DI.US_ITS ---
Exam(s) US PELVIS TRANSVAGINAL EXAM: US PELVIS TRANSVAGINAL CLINICAL HISTORY: check endometrium,POSTMENOPAUSAL VAGINAL BLEEDING,N95.0 TECHNIQUE: Ultrasound of the pelvis was performed both transabdominal and transvaginal. COMPARISON: No exams were available for comparison FINDINGS: UTERUS: Nongravid and anteverted Measures 11 cm length x 6 cm AP x 7 cm wide. There is subtle suggestion of a small uterine fibroid at the level the fundus measuring 1.6 x 1.1 x 1 .7 cm Endometrial thickness measures 28 mm., significant enlarged. It appears heterogeneous and also conta ins a few tiny cystic structures There is no fluid in the endometrial canal. CERVIX: There are no obvious nabothian cysts. OVARIES: Both ovaries were not identified on this exam. CUL-DE-SAC: No free fluid evident in the adnexal regions and cul-de-sac. IMPRESSION: 1. The main finding here is significantly thickened endometrium which exhibits an abnormal thickness of 2.8 cm (28 mm) and appears somewhat heterogeneous. Endometrial biopsy recommended to rule out alissa plasm. 2. Single small uterine fundal fibroid with measurements as above. 3. Both ovaries were not identified, probably age related. DATA REPOSITORY:
== END 2024-11-02 00:38 ==
LOC: DI 00:18
PROVIDERS: PCP Nurse Practitioner Family; Visit Provider Obstetrics & Gynecology
DX: N95.0 Postmenopausal bleeding (principal); R93.89 Abnormal findings on diagnostic imaging of other specified body structures
CPT/HCPCS: 76830; 76856

== ENCOUNTER → 2025-01-09 14:01 | Outpatient (BNVA) | payer MEDICARE, SELFPAY | PROVIDERS: PCP Nurse Practitioner Family; Referring Provider Nurse Practitioner Family; Visit Provider Podiatrist | DX: L60.3 Nail dystrophy (principal); B35.1 Tinea unguium; B35.3 Tinea pedis; L84 Corns and callosities; M79.671 Pain in right foot; M79.672 Pain in left foot; L60.2 Onychogryphosis; L60.8 Other nail disorders; R23.4 Changes in skin texture; L85.8 Other specified epidermal thickening | CPT/HCPCS: 99213 ==

== ENCOUNTER → 2025-05-08 13:52 | Outpatient (BNVA) | payer MEDICARE, SELFPAY | PROVIDERS: PCP Nurse Practitioner Family; Referring Provider Nurse Practitioner Family; Visit Provider Podiatrist | DX: L60.3 Nail dystrophy (principal); B35.1 Tinea unguium; B35.3 Tinea pedis; L84 Corns and callosities | CPT/HCPCS: 99213 ==

== ENCOUNTER → 2025-08-26 10:56 | Outpatient (BNVA) | payer MEDICARE, SELFPAY | PROVIDERS: PCP Nurse Practitioner Family; Referring Provider Nurse Practitioner Family; Visit Provider Podiatrist | DX: L60.3 Nail dystrophy (principal); B35.1 Tinea unguium; B35.3 Tinea pedis; L84 Corns and callosities; B07.0 Plantar wart | CPT/HCPCS: 11305 ==